=== PATIENT | female | born 1945 | race Caucasian/White ===

== ENCOUNTER 2016-12-13 20:15 | Inpatient (IN) | payer OTHER, MEDICARE ==
[~2016-12-13] VITALS: Ht 165.1 cm; Wt 74.3 kg
[2016-12-13 20:16] VITALS: O2SAT 96
[2016-12-13] MEDS ORDERED: CALCIUM CHLORIDE 10% SOLN 1 GRAM/10 ML SYR ONE (20:37)
[2016-12-13 20:38] LABS: BLOOD GAS VENOUS BASE EXCESS -7.5 mmol/L (-2-2); BLOOD GAS VENOUS HCO3 18 mmol/L (22-26); BLOOD GAS VENOUS O2 CONTENT 3.4 Vol % (9.0-17.0); BLOOD GAS VENOUS O2 HGB SAT 24 % (70-76); BLOOD GAS VENOUS PCO2 40 mmHg (44-48); BLOOD GAS VENOUS PO2 21 mmHg (35-40); BLOOD GAS VENOUS pH 7.28 (7.360-7.400); CRITICAL VALUE YES; DRAW SITE LINE; LITER FLOW 4 L/M; OXYGEN DEVICE NASAL CANNULA; TEMP CORR TO 98.6
[2016-12-13 20:39] LABS: STAT YES
[2016-12-13] MEDS ORDERED: GLUCAGON 1 MG/ML VIAL ONE ×3 (20:39→20:40)
[2016-12-13 20:45] LABS: AUTOMATED NEUTROPHIL # 2.8 TH/MM3 (1.8-7.7); BASOPHIL % 0.4 % (0.0-2.0); EOSINOPHIL # 0.2 TH/MM3 (0-0.4); EOSINOPHIL % 2.6 % (0.0-4.0); LYMPH % 57.4 % (9.0-44.0); LYMPHOCYTE # 4.7 TH/MM3 (1.0-4.8); MEAN CELL VOLUME 85.3 FL (80.0-100.0); MEAN CORPUSCULAR HEMOGLOBIN 29.2 PG (27.0-34.0); MEAN CORPUSCULAR HGB CONC 34.2 % (32.0-36.0); MONO % 4.7 % (0.0-8.0); NEUT % 34.9 % (16.0-70.0); PLATELET COUNT 248 TH/MM3 (150-450); RED BLOOD COUNT 3.87 MIL/MM3 (4.00-5.30); RED CELL DISTRIBUTION WIDTH 12.4 % (11.6-17.2); WHITE BLOOD COUNT 8.1 TH/MM3 (4.0-11.0)
[2016-12-13 20:48] LABS: HEMO FLAGS AUTO DIFF
[2016-12-13] MEDS ORDERED: IOHEXOL 350 MG/ML 10 ML VIAL (for RAD DIAG) IV ONE (20:51)
[2016-12-13 20:53] LABS: I-STAT POTASSIUM 2.4 MMOL/L (3.5-4.9)
[2016-12-13 20:57] LABS: APTT (PATIENT) 22.7 SEC (24.3-30.1); PROTHROMBIN TIME - PATIENT 11.6 SEC (9.8-11.6)
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
[2016-12-13 21:17] LABS: BANDS 1 % (0-6); EOSINOPHILS 2 % (0-4); METAMYELOCYTES 1 % (0-1); MYELOCYTES 0 % (0-0); NEUTROPHIL # MANUAL DIFF 2.5 TH/MM3 (1.8-7.7); POLYS (SEG NEUTROPHILS) 29 % (16-70); WBC DIFF SAMPLE 100
[2016-12-13 21:18] LABS: PLATELET ESTIMATE SMEAR NORMAL (NORMAL); PLATELET MORPHOLOGY NORMAL (NORMAL); SCAN/DIFF FINAL DIFF MANUAL
[2016-12-13 21:30] VITALS: BP 152/72; PULSE 74; RESP 25; TEMP 97.7; O2SAT 97
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
[2016-12-13 22:00] VITALS: PULSE 80
[2016-12-13] MEDS ORDERED: ONDANSETRON HCL 4 MG/2 ML VIAL IV PRN (22:00)
[2016-12-13] MEDS ORDERED: ENALAPRILAT 1.25 MG/ML VIAL IV PRN (22:00)
[2016-12-13] MEDS ORDERED: ACETAMINOPHEN/HYDROcodone 325 MG/5 MG TAB PO PRN (22:00)
[2016-12-13] MEDS ORDERED: MAGNESIUM HYDROXIDE SUSP 30 ML CUP PO PRN (22:00)
[2016-12-13] MEDS ORDERED: MISCELLANEOUS NURSING INFORMATION XX SCH (22:00)
[2016-12-13] MEDS ORDERED: CHLORHEXIDINE GLUCONATE 2 % 1 PACK (2 CLOTHS) TOP PRN (22:00)
[2016-12-13] MEDS: BACITRACIN TOP OINT 15 GM TUBE TOP SCH (22:00)
[2016-12-13] MEDS: MORPHINE SULFATE 4 MG/ML INJ IV PRN (22:24)
[2016-12-13] MEDS: PANTOPRAZOLE SODIUM 40 MG VIAL IVP SCH (22:24)
[2016-12-13] MEDS: SODIUM CHLOR 0.9% 1000 ML INJ 1,000 ML IV SCH (22:25)
[2016-12-13 22:50] VITALS: O2SAT 97
[2016-12-13] MEDS: ACETAMINOPHEN/HYDROcodone 325 MG/5 MG TAB PO PRN (23:07)
[2016-12-14] VITALS (12 sets, daily range): BP systolic 92–135; BP diastolic 55–69; PULSE 74–127; RESP 16–23; TEMP 98.3–100.8; O2SAT 92–99
[2016-12-14] MEDS: MORPHINE SULFATE 4 MG/ML INJ IV PRN (00:21)
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
[2016-12-14] MEDS ORDERED: POTASSIUM PHOSPHATE INJ 30 MMOL in SODIUM CHLOR 0.9% 250 ML INJ 250 ML IV PRN (02:07)
[2016-12-14] MEDS ORDERED: POTASSIUM PHOSPHATE MONOBASIC 500 MG TAB PO/TUBE PRN (02:07)
[2016-12-14] MEDS ORDERED: MAGNESIUM SULFATE INJ 4 GM in SODIUM CHLORIDE 0.9% INJ 92 ML IV PRN (02:15)
[2016-12-14] MEDS ORDERED: POTASSIUM CHLOR 20 MEQ PREMIX 100 ML IV PRN ×2 (02:15)
[2016-12-14] MEDS ORDERED: SODIUM PHOSPHATE INJ 30 MMOL in SODIUM CHLOR 0.9% 250 ML INJ 240 ML IV PRN (02:15)
[2016-12-14] MEDS ORDERED: POTASSIUM CHLOR 40 MEQ PREMIX 100 ML IV PRN ×2 (02:15)
[2016-12-14] MEDS ORDERED: MAGNESIUM SULFATE INJ 2 GM in SODIUM CHLORIDE 0.9% INJ 96 ML IV PRN (02:15)
[2016-12-14] MEDS ORDERED: POTASSIUM PHOSPHATE MONOBASIC 500 MG TAB PO PRN (02:15)
[2016-12-14] MEDS ORDERED: MAGNESIUM OXIDE 400 MG TAB PO PRN (02:15)
[2016-12-14 02:19] LABS: BICARBONATE 24.7 MEQ/L (21.0-32.0); POTASSIUM 3.9 MEQ/L (3.5-5.1)
[2016-12-14] MEDS: MORPHINE SULFATE 8 MG/ML INJ IV PUSH PRN ×2 (03:20→05:53)
[2016-12-14] MEDS: ACETAMINOPHEN/HYDROcodone 325 MG/5 MG TAB PO PRN ×3 (03:20→13:26)
[2016-12-14] MEDS ORDERED: MORPHINE SULFATE 4 MG/ML INJ IV PRN (04:00)
[2016-12-14] MEDS ORDERED: CHLORHEXIDINE GLUCONATE 2 % 1 PACK (2 CLOTHS) TOP SCH (04:00)
[2016-12-14 06:08] LABS: AUTOMATED NEUTROPHIL # 9.8 TH/MM3 (1.8-7.7); BASOPHIL % 0.1 % (0.0-2.0); EOSINOPHIL % 0.1 % (0.0-4.0); HEMATOCRIT 35.2 % (35.0-46.0); HEMO FLAGS DIFF FINAL; LYMPH % 7.6 % (9.0-44.0); LYMPHOCYTE # 0.9 TH/MM3 (1.0-4.8); MEAN CORPUSCULAR HGB CONC 34.2 % (32.0-36.0); MONO % 6.1 % (0.0-8.0); NEUT % 86.1 % (16.0-70.0); PLATELET COUNT 155 TH/MM3 (150-450); RED BLOOD COUNT 4.14 MIL/MM3 (4.00-5.30); RED CELL DISTRIBUTION WIDTH 13.7 % (11.6-17.2); WHITE BLOOD COUNT 11.4 TH/MM3 (4.0-11.0)
[2016-12-14] MEDS: SODIUM CHLOR 0.9% 1000 ML INJ 1,000 ML IV SCH (06:14)
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
[2016-12-14 06:29] LABS: BICARBONATE 24.1 MEQ/L (21.0-32.0); POTASSIUM 4.6 MEQ/L (3.5-5.1)
[2016-12-14] MEDS: RESP: ALBUTEROL 2.5 MG/IPRATROPIUM 0.5 MG NEB (SCH) NEB ×3 (08:24→22:04)
[2016-12-14] MEDS: DOCUSATE SODIUM 100 MG CAP PO SCH ×2 (08:35→20:05)
[2016-12-14] MEDS: BACITRACIN TOP OINT 15 GM TUBE TOP SCH ×2 (08:35→20:11)
--- NOTE | 2016-12-14 09:45 | RADRPT ---
EXAM DATE/TIME: 12/14/2016 09:18 [facility] COMPARISON: CHEST SINGLE AP, December 13, 2016, 20:10. INDICATIONS : Shortness of breath. MEDICAL HISTORY : None. SURGICAL HISTORY : None. ENCOUNTER: Subsequent ACUITY: 2 days PAIN SCORE: 0/10 LOCATION: Bilateral chest FINDINGS: The heart size is normal. The study is taken with poor inspiratory effort and there is increased dens ity at the bases especially on the left. Mid and upper lungs are clear. No effusion is seen.CONCLUSIO N: Expiratory chest x-ray with suspected compressive changes at the bases especially on the left. Antelmo Hill MD on December 14, 2016 at 9:43 Board Certified Radiologist. This report was verified electronically.
[2016-12-14] MEDS: METHOCARBAMOL 500 MG TAB PO SCH ×2 (10:59→18:00)
[2016-12-14] MEDS: LIDOCAINE HCL 5% PATCH TD SCH (10:59)
[2016-12-14] MEDS: MORPHINE SULFATE 4 MG/ML INJ IV PUSH PRN ×2 (11:06→14:48)
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
[2016-12-14] MEDS: REMOVE OLD PATCH T-DERMAL SCH (20:08)
[2016-12-14] MEDS: PANTOPRAZOLE SODIUM 40 MG VIAL IVP SCH (21:51)
[2016-12-14] MEDS ORDERED: SODIUM CHLOR 0.9% 1000 ML INJ 999 ML IV ONE (23:30)
[2016-12-15] VITALS (9 sets, daily range): BP systolic 93–141; BP diastolic 57–91; PULSE 95–139; RESP 18–20; TEMP 96.8–100.8; O2SAT 86–97
[2016-12-15 00:02] LABS: AUTOMATED NEUTROPHIL # 6.9 TH/MM3 (1.8-7.7); BASOPHIL % 0.1 % (0.0-2.0); HEMATOCRIT 35.6 % (35.0-46.0); HEMO FLAGS DIFF FINAL; LYMPH % 9.5 % (9.0-44.0); LYMPHOCYTE # 0.8 TH/MM3 (1.0-4.8); MEAN CELL VOLUME 86.9 FL (80.0-100.0); MEAN CORPUSCULAR HEMOGLOBIN 29.4 PG (27.0-34.0); MEAN CORPUSCULAR HGB CONC 33.8 % (32.0-36.0); MONO % 8.2 % (0.0-8.0); NEUT % 82.2 % (16.0-70.0); PLATELET COUNT 141 TH/MM3 (150-450); RED CELL DISTRIBUTION WIDTH 14.2 % (11.6-17.2); WHITE BLOOD COUNT 8.4 TH/MM3 (4.0-11.0)
[2016-12-15] MEDS: METHOCARBAMOL 500 MG TAB PO SCH ×3 (01:49→17:46)
[2016-12-15] MEDS: RESP: ALBUTEROL 2.5 MG/IPRATROPIUM 0.5 MG NEB (SCH) NEB ×4 (04:00→21:18)
[2016-12-15 04:47] LABS: HEMATOCRIT 34.6 % (35.0-46.0); MEAN CELL VOLUME 86.5 FL (80.0-100.0); MEAN CORPUSCULAR HEMOGLOBIN 29.6 PG (27.0-34.0); MEAN CORPUSCULAR HGB CONC 34.3 % (32.0-36.0); PLATELET COUNT 138 TH/MM3 (150-450); RED CELL DISTRIBUTION WIDTH 14.1 % (11.6-17.2); REVIEW FLAG FINAL; WHITE BLOOD COUNT 8.7 TH/MM3 (4.0-11.0)
[2016-12-15] MEDS ORDERED: LEVO.05 PO (04:47)
[2016-12-15] MEDS ORDERED: METO100T PO (04:47)
[2016-12-15] MEDS ORDERED: LISI40TA PO (04:47)
[2016-12-15 05:29] LABS: BICARBONATE 19.9 MEQ/L (21.0-32.0); POTASSIUM 4.8 MEQ/L (3.5-5.1)
[2016-12-15] MEDS ORDERED: ALPRAZolam 0.5 MG TAB PO PRN (06:30)
--- NOTE | 2016-12-15 06:46 | RADRPT ---
EXAM DATE/TIME: 12/15/2016 06:30 [facility] COMPARISON: CHEST SINGLE AP, December 14, 2016, 9:18. INDICATIONS : Shortness of breath. MEDICAL HISTORY : None. SURGICAL HISTORY : None. ENCOUNTER: Subsequent ACUITY: 3 days PAIN SCORE: Non-responsive. LOCATION: Bilateral chest FINDINGS: Increasing consolidation in the medial left lower lung loss of delineation of the medial one third of the left hemidiaphragm. The right lung is clear. The heart is normal size. CONCLUSION: Increasing consolidation medial left lower lung. Rajinder Moreira MD on December 15, 2016 at 6:44 Board Certified Radiologist. This report was verified electronically.
[2016-12-15] MEDS ORDERED: METOPROLOL TARTRATE 100 MG TAB PO ONE ×2 (06:51→13:00)
[2016-12-15] MEDS ORDERED: SODIUM CHLOR 0.9% 1000 ML INJ 1,000 ML IV ONE (08:56)
[2016-12-15] MEDS: BACITRACIN TOP OINT 15 GM TUBE TOP SCH ×2 (09:00→19:57)
[2016-12-15] MEDS: LEVOTHYROXINE SODIUM 50 MCG TAB PO SCH (09:00)
[2016-12-15] MEDS: DOCUSATE SODIUM 100 MG CAP PO SCH ×2 (11:32→19:59)
[2016-12-15] MEDS: LIDOCAINE HCL 5% PATCH TD SCH (11:33)
[2016-12-15] MEDS: ACETAMINOPHEN/HYDROcodone 325 MG/5 MG TAB PO PRN (11:40)
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
[2016-12-15] MEDS: LACTULOSE SYRUP 20 GM/30 ML CUP PO SCH (15:41)
[2016-12-15 19:27] LABS: BLOOD, URINE SMALL (NEG); GLUCOSE,URINE NEG (NEG); GRANULAR CAST, URINE 2 /lpf; HYALINE CAST, URINE 5 /lpf (RARE); KETONE, URINE TRACE mg/dL (NEG); MUCUS URINE FEW /lpf (OCC); NITRITE,URINE NEG (NEG); SQUAMOUS EPITHELIAL CELL URINE 1 /hpf (0-5)
[2016-12-15 19:29] LABS: COMMENT (UR) CATH-CULTURE IND; CULTURE IF INDICATED CATH CULTURE IND; URINE COLOR ORANGE (YELLW/STRAW)
[2016-12-15] MEDS: PANTOPRAZOLE SODIUM 40 MG VIAL IVP SCH (19:58)
[2016-12-15] MEDS: REMOVE OLD PATCH T-DERMAL SCH (19:59)
--- NOTE | 2016-12-15 21:31 | EKG ---
Date Performed: 12/14/2016 Time Performed: 23:35:06 PTAGE: 71 years EKG: Sinus tachycardia Within normal limits NO PREVIOUS TRACING to compare. Abnormal ECG NO PREVIOUS TRACING DOCTOR: Yony Jones Interpretating Date/Time 04/02/2017 14:28:07
[2016-12-16] VITALS (15 sets, daily range): BP systolic 75–157; BP diastolic 47–78; PULSE 88–230; RESP 18–34; TEMP 96.4–103.1; O2SAT 89–100
[2016-12-16] MEDS: METHOCARBAMOL 500 MG TAB PO SCH ×4 (01:11→16:44)
[2016-12-16] MEDS: RESP: ALBUTEROL 2.5 MG/IPRATROPIUM 0.5 MG NEB (SCH) NEB ×3 (03:55→20:47)
[2016-12-16] MEDS: LEVOTHYROXINE SODIUM 50 MCG TAB PO SCH (05:10)
[2016-12-16 06:15] LABS: HEMATOCRIT 37.4 % (35.0-46.0); MEAN CELL VOLUME 88.8 FL (80.0-100.0); MEAN CORPUSCULAR HEMOGLOBIN 29.9 PG (27.0-34.0); MEAN CORPUSCULAR HGB CONC 33.7 % (32.0-36.0); PLATELET COUNT 159 TH/MM3 (150-450); RED BLOOD COUNT 4.21 MIL/MM3 (4.00-5.30); RED CELL DISTRIBUTION WIDTH 14.7 % (11.6-17.2); REVIEW FLAG FINAL; WHITE BLOOD COUNT 8.7 TH/MM3 (4.0-11.0)
--- NOTE | 2016-12-16 06:46 | RADRPT ---
EXAM DATE/TIME: 12/16/2016 05:24 [facility] COMPARISON: CHEST SINGLE AP, December 15, 2016, 6:30. INDICATIONS : Shortness of breath. MEDICAL HISTORY : None. SURGICAL HISTORY : None. ENCOUNTER: Subsequent ACUITY: 4 - 6 days PAIN SCORE: Non-responsive. LOCATION: Bilateral chest FINDINGS: Single AP view of the chest. Opacity at left lung base indicating atelectasis verses consolidation. L perri volumes are low. Cardiomediastinal silhouette unchanged. Possible small left pleural effusion. CONCLUSION: No change in left lower lobe consolidation versus atelectasis and small left pleural effusion. Fly White MD on December 16, 2016 at 6:43 Board Certified Radiologist. This report was verified electronically.
[2016-12-16] MEDS ORDERED: LORazepam 2 MG/ML VIAL IVS ONE (07:02)
[2016-12-16 07:16] LABS: BICARBONATE 16.2 MEQ/L (21.0-32.0); MAGNESIUM 1.4 MG/DL (1.5-2.5); POTASSIUM 4.6 MEQ/L (3.5-5.1)
[2016-12-16] MEDS: LACTULOSE SYRUP 20 GM/30 ML CUP PO SCH ×2 (09:00→10:39)
[2016-12-16] MEDS ORDERED: METOPROLOL SUCCINATE 25 MG EXTENDED RELEASE TAB PO SCH (09:00)
[2016-12-16] MEDS: BACITRACIN TOP OINT 15 GM TUBE TOP SCH ×2 (09:00→21:00)
[2016-12-16] MEDS: DOCUSATE SODIUM 100 MG CAP PO SCH ×3 (09:00→21:00)
[2016-12-16] MEDS: LIDOCAINE HCL 5% PATCH TD SCH (10:41)
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
[2016-12-16] MEDS ORDERED: NORMOSOL R INJ 2,000 ML IV ONE (12:00)
[2016-12-16] MEDS ORDERED: PHENYLEPH/NS 1000 MCG/10 ML SYR IV ONE (12:00)
[2016-12-16 12:19] LABS: BLOOD GAS BASE EXCESS -9.6 mmol/L (-2-2); BLOOD GAS CARBOXYHEMOGLOBIN 1.7 % (0-4); BLOOD GAS HCO3 14 mmol/L (22-26); BLOOD GAS O2 HGB SATURATION 89 % (90-100); BLOOD GAS OXYGEN CONTENT 16.2 Vol % (12.0-20.0); BLOOD GAS PCO2 25 mmHg (38-42); BLOOD GAS PO2 61 mmHg (61-120); TEMP CORR TO 98.6
[2016-12-16 12:20] LABS: CRITICAL VALUE YES; DRAW SITE LT RADIAL; LITER FLOW 6 L/M; NUMBER OF ARTERIAL PUNCTURES 1; OXYGEN DEVICE MASK; STAT YES; ULNAR PULSE PRESENT
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
[2016-12-16] MEDS ORDERED: MIDAZOLAM HCL 5 MG/ML VIAL (1 ML) ONE (12:56)
[2016-12-16] MEDS ORDERED: ROCURONIUM INJ 50 MG/5 ML VIAL ONE (12:56)
[2016-12-16] MEDS: SODIUM CHLOR 0.9% 1000 ML INJ 1,000 ML IV SCH (13:00)
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
[2016-12-16 14:03] LABS: BACTERIA, URINE RARE /hpf; BLOOD, URINE MOD (NEG); COMMENT (UR) CATH-CULTURE IND; CULTURE IF INDICATED CATH CULTURE IND; GLUCOSE,URINE NEG (NEG); GRANULAR CAST, URINE 4 /lpf; HYALINE CAST, URINE 16 /lpf (RARE); KETONE, URINE NEG (NEG); MUCUS URINE FEW /lpf (OCC); NITRITE,URINE NEG (NEG); PH, URINE 5.5 (5.0-8.5); SQUAMOUS EPITHELIAL CELL URINE 1 /hpf (0-5); URINE COLOR YELLOW (YELLW/STRAW)
[2016-12-16 14:12] LABS: BLOOD GAS VENOUS BASE EXCESS -9.8 mmol/L (-2-2); BLOOD GAS VENOUS HCO3 16 mmol/L (22-26); BLOOD GAS VENOUS O2 CONTENT 10.2 Vol % (9.0-17.0); BLOOD GAS VENOUS O2 HGB SAT 72 % (70-76); BLOOD GAS VENOUS PCO2 39 mmHg (44-48); BLOOD GAS VENOUS PO2 46 mmHg (35-40); BLOOD GAS VENOUS pH 7.24 (7.360-7.400); TEMP CORR TO 98.6
[2016-12-16 14:13] LABS: CRITICAL VALUE YES; OXYGEN DEVICE VENTILATOR
[2016-12-16 14:14] LABS: DRAW SITE SWAN GANZ LINE; FIO2 100 %; STAT NO; VENT SETTINGS PRVC14/450/1.0/PEEP5
[2016-12-16] MEDS ORDERED: MAGNESIUM SULFATE 1 GM PREMIX 100 ML ONE (14:58)
[2016-12-16] MEDS: MAGNESIUM SULFAT 1 GM PREMIX 100 ML x2 bags IV SCH ×2 (15:15→16:15)
[2016-12-16 15:24] LABS: INDIRECT BILIRUBIN 0.6 MG/DL (0.0-0.8); TOTAL BILIRUBIN ADULT 0.9 MG/DL (0.2-1.0)
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
--- NOTE | 2016-12-16 15:45 | PD.PROCEDR ---
Procedure Note Procedure DX: Hypoxemic Respiratory Failure, Sepsis, ESE. OP: 1. Orotracheal intubation (08411) 2. Insertion Central Iine (09483) Procedure: Bag mask ventilation. Versed 10 mg and rocuronium 50 mg iv. Intubated orally with 7.5 tube position confirmed with CO2 detection, breath sounds, sats 100%. Right chest prepped and draped. Right subclavian vein cannulated and wire advanced. Catheter passed over wire to 17 cm. Lumens aspirated and flushed. Dressing applied. CXR ordered, will review. Sánchez Licea MD Dec 16, 2016 15:45
[2016-12-16] MEDS ORDERED: cefTRIAXone INJ 2,000 MG in SODIUM CHLORIDE 0.9% INJ 100 ML IV SCH (16:00)
[2016-12-16] MEDS ORDERED: OMEP20TA PO (16:55)
[2016-12-16] MEDS ORDERED: FENO145T2 PO (16:55)
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
[2016-12-16] MEDS ORDERED: AMIT10TA6 PO (17:02)
[2016-12-16] MEDS ORDERED: CHLO25TA2 PO (17:03)
[2016-12-16] MEDS ORDERED: SODIUM BICARBONATE 8.4% INJ 75 MEQ in SODIUM CHLOR 0.45% 1000 ML INJ 1,000 ML IV SCH (17:30)
[2016-12-16] MEDS ORDERED: PROPOFOL 1000 MG/100 ML INJ 100 ML ONE (19:11)
[2016-12-16] MEDS ORDERED: PROPOFOL 1000 MG/100 ML INJ 100 ML IV SCH (19:15)
[2016-12-16] MEDS ORDERED: METOPROLOL TARTRATE 5 MG/5 ML VIAL ONE (19:19)
[2016-12-16] MEDS: PIPERACIL-TAZO 2.25 GM PREMIX 50 ML IV SCH (20:00)
[2016-12-16] MEDS ORDERED: SODIUM CHLOR 0.9% 1000 ML INJ 1,000 ML IV ONE ×3 (20:00→23:15)
[2016-12-16] MEDS ORDERED: ACETAMINOPHEN 1000 MG/100 ML VIAL IV ONE (20:00)
[2016-12-16] MEDS: BISACODYL 10 MG SUPP RECTAL SCH ×2 (20:00→21:00)
[2016-12-16 20:33] LABS: AUTOMATED NEUTROPHIL # 2.9 TH/MM3 (1.8-7.7); BASOPHIL % 0.2 % (0.0-2.0); EOSINOPHIL % 0.1 % (0.0-4.0); HEMATOCRIT 31.8 % (35.0-46.0); LYMPH % 18.3 % (9.0-44.0); LYMPHOCYTE # 0.7 TH/MM3 (1.0-4.8); MEAN CELL VOLUME 85.7 FL (80.0-100.0); MEAN CORPUSCULAR HEMOGLOBIN 29.4 PG (27.0-34.0); MEAN CORPUSCULAR HGB CONC 34.3 % (32.0-36.0); MONO % 6.2 % (0.0-8.0); NEUT % 75.2 % (16.0-70.0); PLATELET COUNT 183 TH/MM3 (150-450); RED BLOOD COUNT 3.72 MIL/MM3 (4.00-5.30); RED CELL DISTRIBUTION WIDTH 14.2 % (11.6-17.2); WHITE BLOOD COUNT 3.9 TH/MM3 (4.0-11.0)
[2016-12-16 20:38] LABS: HEMO FLAGS AUTO DIFF
[2016-12-16] MEDS: REMOVE OLD PATCH T-DERMAL SCH (21:00)
[2016-12-16] MEDS: METOCLOPRAMIDE HCL 10 MG/2 ML VIAL IV PUSH SCH (21:01)
[2016-12-16] MEDS: PANTOPRAZOLE SODIUM 40 MG VIAL IVP SCH (21:01)
[2016-12-16 21:16] LABS: BANDS 41 % (0-6); METAMYELOCYTES 13 % (0-1); MYELOCYTES 5 % (0-0); NEUTROPHIL # MANUAL DIFF 3.2 TH/MM3 (1.8-7.7); POLYS (SEG NEUTROPHILS) 23 % (16-70); PROMYELOCYTES 1 % (0-0); WBC DIFF SAMPLE 100
[2016-12-16 21:17] LABS: DOHLE BODIES PRESENT (NONE SEEN); PLATELET ESTIMATE SMEAR NORMAL (NORMAL); PLATELET MORPHOLOGY NORMAL (NORMAL); SCAN/DIFF FINAL DIFF MANUAL; TOXIC VACUOLATION PRESENT (NONE SEEN)
[2016-12-16] MEDS ORDERED: NOREPINEPHRINE-DEXTROSE DRIP 250 ML IV ONE (21:19)
[2016-12-16] MEDS ORDERED: VANCOMYCIN INJ 1,600 MG in SODIUM CHLORID 0.9% 500 ML INJ 500 ML IV ONE (22:00)
[2016-12-16 22:16] LABS: LACTIC ACID GHOST NOT REPORTABLE
--- NOTE | 2016-12-16 23:01 | PD.PROCEDR ---
Procedure Note Procedure DATE: 12/16/16 PROCEDURE: Right radial arterial catheter placement INDICATION: Septic shock, in need of hemodynamic monitoring. DETAILS OF PROCEDURE Agustin test was performed and demonstrated satisfactory perfusion. The patient was positioned with wrist in mild extension. The skin was cleansed with Chloraprep. Additional barrier precautions included large sterile drape, sterile gloves, sterile gown, face mask, and hat. Under direct ultrasound guidnce and on the third attempt, the artery was accessed with an introducer needle. The guide wire was advanced. Using Seldinger technique 20 gauge arterial catheter was placed. The guide wire was removed. The catheter was connected to a transducer line and flushed with saline. The video monitor displayed normal arterial wave forms. The catheter was secured with 2-0 silk. A sterile dressing with antibiotic disc was applied. ESTIMATED BLOOD LOSS: minimal COMPLICATIONS: None Miracle Caban MD Dec 16, 2016 23:01
[2016-12-16] MEDS ORDERED: BUPIVACAINE/EPINEPHRINE 0.5% PF 30 ML VIAL ONE (23:05)
[2016-12-16] MEDS ORDERED: HEPARIN SODIUM - SQ 10,000 UNITS/ML VIAL ONE (23:40)
[2016-12-17] VITALS (17 sets, daily range): BP systolic 117–136; BP diastolic 50–61; PULSE 88–138; RESP 16–19; TEMP 97.6–99.3; O2SAT 95–100
[2016-12-17] MEDS ORDERED: fentaNYL CITRATE 250 MCG/5 ML AMP ONE (01:42)
[2016-12-17 01:52] LABS: HEMATOCRIT 25.5 % (35.0-46.0); MEAN CELL VOLUME 87.7 FL (80.0-100.0); MEAN CORPUSCULAR HEMOGLOBIN 29.8 PG (27.0-34.0); PLATELET COUNT 196 TH/MM3 (150-450); RED BLOOD COUNT 2.91 MIL/MM3 (4.00-5.30); RED CELL DISTRIBUTION WIDTH 14.6 % (11.6-17.2)
[2016-12-17 01:54] LABS: HEMO FLAGS AUTO DIFF
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
[2016-12-17 02:18] LABS: BICARBONATE 13.8 MEQ/L (21.0-32.0); MAGNESIUM 1.7 MG/DL (1.5-2.5); POTASSIUM 4.4 MEQ/L (3.5-5.1); TOTAL BILIRUBIN ADULT 0.8 MG/DL (0.2-1.0)
[2016-12-17 02:19] LABS: CALCIUM-PROTEIN CORRECTED 6.7 MG/DL (8.5-10.1)
[2016-12-17] MEDS ORDERED: VASOPRESSIN INJ 20 UNITS/ML VIAL ONE (02:27)
[2016-12-17 02:30] LABS: BLOOD GAS CARBOXYHEMOGLOBIN 0.7 % (0-4); BLOOD GAS HCO3 10 mmol/L (22-26); BLOOD GAS METHEMOGLOBIN 1.1 % (0-2); BLOOD GAS O2 HGB SATURATION 94 % (90-100); BLOOD GAS OXYGEN CONTENT 11.3 Vol % (12.0-20.0); BLOOD GAS PCO2 27 mmHg (38-42); BLOOD GAS PO2 96 mmHg (61-120); BLOOD GAS TOTAL HGB 8.4 G/DL (12.0-16.0); CRITICAL VALUE YES; OXYGEN DEVICE VENTILATOR; TEMP CORR TO 98.6
[2016-12-17] MEDS ORDERED: SODIUM BICARBONATE 8.4% INJ 50 MEQ/50 ML SYR IV PUSH ONE (02:30)
[2016-12-17] MEDS ORDERED: CALCIUM CHLORIDE INJ 1 GM in DEXTROSE 5% IN WATER 100ML INJ 100 ML IV ONE ×2 (02:30)
[2016-12-17 02:32] LABS: DRAW SITE ART LINE; FIO2 80 %; STAT YES; ULNAR PULSE PRESENT
[2016-12-17] MEDS: VASOPRESSIN INJ 40 UNITS in DEXTROSE 5% IN WATER 100ML INJ 98 ML IV SCH ×2 (02:33)
[2016-12-17] MEDS: SODIUM CHLOR 0.9% 1000 ML INJ 1,000 ML IV SCH ×2 (02:33→07:24)
[2016-12-17] MEDS: PIPERACIL-TAZO 2.25 GM PREMIX 50 ML IV SCH ×4 (02:47→20:39)
[2016-12-17] MEDS: RESP: ALBUTEROL 2.5 MG/IPRATROPIUM 0.5 MG NEB (SCH) NEB ×4 (02:52→19:38)
[2016-12-17 03:05] LABS: BANDS 35 % (0-6); CORRECTED NUCLEATED RBC 1 /100 WBC (0-0); METAMYELOCYTES 22 % (0-1); MYELOCYTES 2 % (0-0); PLATELET ESTIMATE SMEAR NORMAL (NORMAL); POLYS (SEG NEUTROPHILS) 24 % (16-70); PROMYELOCYTES 2 % (0-0); SCAN/DIFF FINAL DIFF MANUAL; WBC DIFF SAMPLE 100
[2016-12-17 03:06] LABS: DOHLE BODIES PRESENT (NONE SEEN); PLATELET MORPHOLOGY NORMAL (NORMAL); TOXIC VACUOLATION PRESENT (NONE SEEN)
[2016-12-17 03:07] LABS: BURR CELLS 1+ (NORMAL); POLYCHROMASIA 2.4 % (0.0-1.9)
[2016-12-17] MEDS: SODIUM BICARBONATE 8.4% INJ 150 MEQ in WATER STERILE FOR INJ 850 ML IV SCH ×2 (03:16→23:00)
[2016-12-17] MEDS: FLUCONAZOLE/NACL 200 MG/100 ML IV SCH (03:24)
--- NOTE | 2016-12-17 05:04 | RADRPT ---
EXAM DATE/TIME: 12/17/2016 03:00 [place] COMPARISON: CHEST SINGLE AP, December 16, 2016, 5:24. INDICATIONS : Shortness of breath. MEDICAL HISTORY : None. SURGICAL HISTORY : None. ENCOUNTER: Subsequent ACUITY: 1 week PAIN SCORE: Non-responsive. LOCATION: Bilateral chest FINDINGS: Single AP view of the chest. Endotracheal tube is in place with the tip 3 cm above the ruby. Nasoga stric tube is in place with the tip below the [id number] of the radiograph. Right subclavian centr al venous catheter is in place with the tip at the cavoatrial junction. No evidence of pneumothorax. Bilateral lower lung zone predominant parenchymal opacity and small bilateral pleural effusions. CONCLUSION: Increased bilateral lower lung zone predominant opacity suggesting pulmonary edema. Small bilateral p leural effusions. Lines and tubes in place. Fly White MD on December 17, 2016 at 5:01 Board Certified Radiologist. This report was verified electronically.
[2016-12-17] MEDS: METOCLOPRAMIDE HCL 10 MG/2 ML VIAL IV PUSH SCH ×3 (06:34→20:38)
[2016-12-17] MEDS: LEVOTHYROXINE SODIUM 100 MCG VIAL IV PUSH SCH (06:34)
[2016-12-17] MEDS: CHLORHEXIDINE 0.12% (ORAL KIT) 15 ML CUP MT SCH ×2 (07:53→20:38)
[2016-12-17] MEDS: LIDOCAINE HCL 5% PATCH TD SCH (08:50)
[2016-12-17] MEDS: BISACODYL 10 MG SUPP RECTAL SCH (08:50)
[2016-12-17] MEDS: DOCUSATE SODIUM 100 MG CAP PO SCH (08:51)
[2016-12-17] MEDS: LACTULOSE SYRUP 20 GM/30 ML CUP PO SCH (08:51)
[2016-12-17 09:37] LABS: AUTOMATED NEUTROPHIL # 3.1 TH/MM3 (1.8-7.7); BASOPHIL % 0.2 % (0.0-2.0); EOSINOPHIL % 0.6 % (0.0-4.0); HEMATOCRIT 35.2 % (35.0-46.0); LYMPHOCYTE # 0.7 TH/MM3 (1.0-4.8); MEAN CELL VOLUME 85.4 FL (80.0-100.0); MEAN CORPUSCULAR HEMOGLOBIN 28.9 PG (27.0-34.0); MEAN CORPUSCULAR HGB CONC 33.9 % (32.0-36.0); NEUT % 77.2 % (16.0-70.0); PLATELET COUNT 128 TH/MM3 (150-450); RED BLOOD COUNT 4.12 MIL/MM3 (4.00-5.30); RED CELL DISTRIBUTION WIDTH 14.3 % (11.6-17.2)
[2016-12-17 09:43] LABS: HEMO FLAGS AUTO DIFF
[2016-12-17 09:45] LABS: BICARBONATE 17.3 MEQ/L (21.0-32.0); MAGNESIUM 1.9 MG/DL (1.5-2.5); POTASSIUM 3.8 MEQ/L (3.5-5.1); TOTAL BILIRUBIN ADULT 1.1 MG/DL (0.2-1.0)
[2016-12-17 09:50] LABS: CALCIUM-PROTEIN CORRECTED 7.3 MG/DL (8.5-10.1)
[2016-12-17] MEDS: BACITRACIN TOP OINT 15 GM TUBE TOP SCH ×2 (10:24→20:38)
[2016-12-17 10:40] LABS: BANDS 38 % (0-6); BURR CELLS 2+ (NORMAL); METAMYELOCYTES 2 % (0-1); NEUTROPHIL # MANUAL DIFF 3.6 TH/MM3 (1.8-7.7); POLYS (SEG NEUTROPHILS) 50 % (16-70); WBC DIFF SAMPLE 100
[2016-12-17 10:41] LABS: DOHLE BODIES PRESENT (NONE SEEN); PLATELET ESTIMATE SMEAR LOW (NORMAL); PLATELET MORPHOLOGY NORMAL (NORMAL); SCAN/DIFF FINAL DIFF MANUAL; TOXIC VACUOLATION PRESENT (NONE SEEN)
[2016-12-17] MEDS ORDERED: WATER IV ONE ×2 (11:00)
[2016-12-17] MEDS ORDERED: CALCIUM CHLORIDE IV ONE ×2 (11:00)
[2016-12-17] MEDS ORDERED: DEXTROSE 5% IV ONE ×2 (11:00)
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
[2016-12-17] MEDS ORDERED: VANCOMYCIN INJ 1,000 MG in SODIUM CHLOR 0.9% 250 ML INJ 250 ML IV ONE (13:00)
[2016-12-17] MEDS ORDERED: BUMETANIDE INJ 1 MG/4 ML VIAL IV PUSH ONE (13:15)
[2016-12-17] MEDS ORDERED: BUMETANIDE INJ 100 ML IV SCH (14:45)
--- NOTE | 2016-12-17 15:00 | EKG ---
Date Performed: 12/17/2016 Time Performed: 11:44:27 PTAGE: 71 years EKG: SINUS TACHYCARDIA WITH SHORT DC INTERVAL LOW QRS VOLTAGE IN EXTREMITY LEADS POSSIBLE ANTERI OR MYOCARDIAL INFARCTION , PROBABLY OLD Compared to prior tracing no significant change ABNORMAL RHYT ECG PREVIOUS TRACING : 12/16/2016 21.23 DOCTOR: Jeremias Brizuela Interpretating Date/Time 04/02/2017 14:28:26
--- NOTE | 2016-12-17 15:00 | EKG ---
Date Performed: 12/16/2016 Time Performed: 21:23:30 PTAGE: 71 years EKG: Sinus tachycardia with PAC(s). Short ME interval Poor R wave progression - probable normal variant Low QRS voltages in limb leads Compared to prior tracing no significant change Borderline ECG PREVIOUS TRACING : 12/14/2016 23.35 DOCTOR: Jeremias Brizuela Interpretating Date/Time 04/02/2017 14:28:17
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
[2016-12-17] MEDS ORDERED: ALBUMIN HUMAN 5% 25 GM/500 ML BOTTLE IV ONE (17:15)
[2016-12-17] MEDS ORDERED: ALBUMIN HUMAN 5% 25 GM/500 ML BOTTLE IV PRN (17:30)
[2016-12-17] MEDS: METOPROLOL TARTRATE 5 MG/5 ML VIAL IV PUSH PRN (18:09)
[2016-12-17] MEDS: MIDAZOLAM HCL 2 MG/2 ML VIAL IV PUSH PRN (19:11)
[2016-12-17] MEDS: PANTOPRAZOLE SODIUM 40 MG VIAL IVP SCH (20:37)
[2016-12-18] VITALS (16 sets, daily range): BP systolic 114–153; BP diastolic 48–60; PULSE 100–144; RESP 16–23; TEMP 98.7–99.6; O2SAT 96–100
[2016-12-18] MEDS: VASOPRESSIN INJ 40 UNITS in DEXTROSE 5% IN WATER 100ML INJ 98 ML IV SCH ×2 (00:13)
[2016-12-18] MEDS: SODIUM BICARBONATE 8.4% INJ 150 MEQ in WATER STERILE FOR INJ 850 ML IV SCH (01:30)
[2016-12-18] MEDS: PIPERACIL-TAZO 2.25 GM PREMIX 50 ML IV SCH ×4 (02:36→19:26)
[2016-12-18] MEDS: FLUCONAZOLE/NACL 200 MG/100 ML IV SCH (02:36)
[2016-12-18] MEDS: RESP: ALBUTEROL 2.5 MG/IPRATROPIUM 0.5 MG NEB (SCH) NEB (03:23)
[2016-12-18] MEDS: MIDAZOLAM HCL 2 MG/2 ML VIAL IV PUSH PRN ×4 (04:00→22:51)
[2016-12-18] MEDS ORDERED: LORazepam 2 MG/ML VIAL ONE (04:13)
[2016-12-18] MEDS ORDERED: LORazepam 2 MG/ML VIAL IV PUSH ONE (04:15)
[2016-12-18] MEDS ORDERED: SODIUM CHLORID 0.9% 500 ML INJ 500 ML IV ONE (04:30)
[2016-12-18 04:44] LABS: AUTOMATED NEUTROPHIL # 5.4 TH/MM3 (1.8-7.7); BASOPHIL % 0.1 % (0.0-2.0); EOSINOPHIL % 0.2 % (0.0-4.0); HEMATOCRIT 29.6 % (35.0-46.0); LYMPH % 13.1 % (9.0-44.0); LYMPHOCYTE # 0.9 TH/MM3 (1.0-4.8); MEAN CELL VOLUME 82.7 FL (80.0-100.0); MEAN CORPUSCULAR HEMOGLOBIN 29.4 PG (27.0-34.0); MEAN CORPUSCULAR HGB CONC 35.6 % (32.0-36.0); MONO % 4.4 % (0.0-8.0); NEUT % 82.2 % (16.0-70.0); PLATELET COUNT 146 TH/MM3 (150-450); RED BLOOD COUNT 3.57 MIL/MM3 (4.00-5.30); RED CELL DISTRIBUTION WIDTH 14.9 % (11.6-17.2); WHITE BLOOD COUNT 6.5 TH/MM3 (4.0-11.0)
--- NOTE | 2016-12-18 04:49 | RADRPT ---
EXAM DATE/TIME: 12/18/2016 03:06 [facility] COMPARISON: CHEST SINGLE AP, December 17, 2016, 3:00. INDICATIONS : Shortness of breath. MEDICAL HISTORY : Hypertension. SURGICAL HISTORY : Hysterectomy. ENCOUNTER: Subsequent ACUITY: 4 - 6 days PAIN SCORE: Non-responsive. LOCATION: Bilateral chest FINDINGS: Single AP view of the chest. Endotracheal tube, nasogastric tube, and right subclavian central venous catheter in place. No significant interval change in bilateral pulmonary opacity and likely small le ft pleural effusion. No evidence of pneumothorax. Cardiomediastinal silhouette unchanged. CONCLUSION: No change in bilateral pulmonary opacity. Likely small left pleural effusion. Fly White MD on December 18, 2016 at 4:42 Board Certified Radiologist. This report was verified electronically.
[2016-12-18 04:52] LABS: HEMO FLAGS AUTO DIFF
[2016-12-18 05:10] LABS: BICARBONATE 23.9 MEQ/L (21.0-32.0); CALCIUM-PROTEIN CORRECTED 8.4 MG/DL (8.5-10.1); MAGNESIUM 1.5 MG/DL (1.5-2.5); TOTAL BILIRUBIN ADULT 1.1 MG/DL (0.2-1.0)
[2016-12-18] MEDS: METOCLOPRAMIDE HCL 10 MG/2 ML VIAL IV PUSH SCH ×3 (05:13→22:51)
[2016-12-18] MEDS: LEVOTHYROXINE SODIUM 100 MCG VIAL IV PUSH SCH (05:14)
[2016-12-18 05:17] LABS: POTASSIUM 2.9 MEQ/L (3.5-5.1)
[2016-12-18 05:45] LABS: BLOOD GAS BASE EXCESS -0.1 mmol/L (-2-2); BLOOD GAS CARBOXYHEMOGLOBIN 1.4 % (0-4); BLOOD GAS HCO3 23 mmol/L (22-26); BLOOD GAS METHEMOGLOBIN 0.9 % (0-2); BLOOD GAS O2 HGB SATURATION 92 % (90-100); BLOOD GAS OXYGEN CONTENT 13.6 Vol % (12.0-20.0); BLOOD GAS PCO2 34 mmHg (38-42); BLOOD GAS PO2 69 mmHg (61-120); BLOOD GAS TOTAL HGB 10.4 G/DL (12.0-16.0); CRITICAL VALUE NO; OXYGEN DEVICE VENTILATOR; TEMP CORR TO 98.6
[2016-12-18 05:46] LABS: DRAW SITE LT RADIAL; FIO2 45 %; NUMBER OF ARTERIAL PUNCTURES 1; STAT NO; ULNAR PULSE PRESENT; VENT SETTINGS PRVC/AC
[2016-12-18] MEDS: METOPROLOL TARTRATE 5 MG/5 ML VIAL IV PUSH PRN ×3 (06:44→20:35)
[2016-12-18 07:06] LABS: BANDS 23 % (0-6); EOSINOPHILS 1 % (0-4); NEUTROPHIL # MANUAL DIFF 5.7 TH/MM3 (1.8-7.7); POLYS (SEG NEUTROPHILS) 65 % (16-70); WBC DIFF SAMPLE 100
[2016-12-18 07:07] LABS: PLATELET ESTIMATE SMEAR NORMAL (NORMAL); PLATELET MORPHOLOGY NORMAL (NORMAL); SCAN/DIFF FINAL DIFF MANUAL
[2016-12-18] MEDS ORDERED: MAGNESIUM SULFATE INJ 2 GM in SODIUM CHLORIDE 0.9% INJ 96 ML IV PRN (08:45)
[2016-12-18] MEDS ORDERED: POTASSIUM PHOSPHATE MONOBASIC 500 MG TAB PO/TUBE PRN (08:45)
[2016-12-18] MEDS ORDERED: MAGNESIUM SULFATE INJ 4 GM in SODIUM CHLORIDE 0.9% INJ 92 ML IV PRN (08:45)
[2016-12-18] MEDS ORDERED: MAGNESIUM OXIDE 400 MG TAB PO PRN (08:45)
[2016-12-18] MEDS ORDERED: POTASSIUM CHLOR 20 MEQ PREMIX 100 ML IV PRN ×2 (08:45)
[2016-12-18] MEDS ORDERED: SODIUM PHOSPHATE INJ 30 MMOL in SODIUM CHLOR 0.9% 250 ML INJ 240 ML IV PRN (08:45)
[2016-12-18] MEDS ORDERED: POTASSIUM CHLOR 40 MEQ PREMIX 100 ML IV PRN (08:45)
[2016-12-18] MEDS ORDERED: POTASSIUM PHOSPHATE MONOBASIC 500 MG TAB PO PRN (08:45)
[2016-12-18] MEDS: BACITRACIN TOP OINT 15 GM TUBE TOP SCH ×2 (09:00→19:26)
[2016-12-18] MEDS: CHLORHEXIDINE 0.12% (ORAL KIT) 15 ML CUP MT SCH ×2 (09:04→19:26)
[2016-12-18] MEDS: POTASSIUM CHLOR 40 MEQ PREMIX 100 ML IV PRN ×4 (09:13→20:28)
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
[2016-12-18] MEDS ORDERED: FUROSEMIDE 20 MG/2 ML VIAL IV PUSH ONE (11:00)
[2016-12-18] MEDS: fentaNYL 2,500 MCG/NS 250 ML IV SCH (11:13)
[2016-12-18] MEDS: HEPARIN SODIUM - SQ 10,000 UNITS/ML VIAL SQ SCH ×2 (11:59→19:26)
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
[2016-12-18] MEDS ORDERED: Custom Consult Pharmacy 1 EA OTHER SCH (17:30)
[2016-12-18] MEDS: PANTOPRAZOLE SODIUM 40 MG VIAL IVP SCH (22:51)
[2016-12-18] MEDS: MIDAZOLAM 100 MG/ML INJ 100 ML IV SCH (23:54)
[2016-12-19] VITALS (18 sets, daily range): BP systolic 123–178; BP diastolic 54–65; PULSE 88–130; RESP 15–18; TEMP 98.8–100.4; O2SAT 94–99
[2016-12-19] MEDS: METOPROLOL TARTRATE 5 MG/5 ML VIAL IV PUSH PRN ×3 (00:12→21:41)
[2016-12-19] MEDS: fentaNYL 2,500 MCG/NS 250 ML IV SCH ×2 (00:56→19:03)
[2016-12-19] MEDS: PIPERACIL-TAZO 2.25 GM PREMIX 50 ML IV SCH ×3 (01:16→13:17)
[2016-12-19] MEDS: FLUCONAZOLE/NACL 200 MG/100 ML IV SCH (04:02)
[2016-12-19 04:54] LABS: AUTOMATED NEUTROPHIL # 9.6 TH/MM3 (1.8-7.7); BASOPHIL % 0.2 % (0.0-2.0); EOSINOPHIL # 0.1 TH/MM3 (0-0.4); EOSINOPHIL % 0.7 % (0.0-4.0); HEMATOCRIT 28.6 % (35.0-46.0); LYMPH % 6.2 % (9.0-44.0); LYMPHOCYTE # 0.6 TH/MM3 (1.0-4.8); MEAN CELL VOLUME 83.8 FL (80.0-100.0); MEAN CORPUSCULAR HEMOGLOBIN 30.1 PG (27.0-34.0); MEAN CORPUSCULAR HGB CONC 35.9 % (32.0-36.0); MONO % 0.5 % (0.0-8.0); NEUT % 92.4 % (16.0-70.0); PLATELET COUNT 157 TH/MM3 (150-450); RED BLOOD COUNT 3.42 MIL/MM3 (4.00-5.30); RED CELL DISTRIBUTION WIDTH 14.8 % (11.6-17.2); WHITE BLOOD COUNT 10.4 TH/MM3 (4.0-11.0)
[2016-12-19 05:01] LABS: HEMO FLAGS AUTO DIFF
[2016-12-19 05:22] LABS: CALCIUM-PROTEIN CORRECTED 8.5 MG/DL (8.5-10.1); MAGNESIUM 1.7 MG/DL (1.5-2.5); POTASSIUM 3.5 MEQ/L (3.5-5.1); TOTAL BILIRUBIN ADULT 1.5 MG/DL (0.2-1.0)
[2016-12-19 05:31] LABS: BLOOD GAS BASE EXCESS 3.3 mmol/L (-2-2); BLOOD GAS CARBOXYHEMOGLOBIN 1.5 % (0-4); BLOOD GAS HCO3 27 mmol/L (22-26); BLOOD GAS METHEMOGLOBIN 1.1 % (0-2); BLOOD GAS O2 HGB SATURATION 92 % (90-100); BLOOD GAS OXYGEN CONTENT 14.1 Vol % (12.0-20.0); BLOOD GAS PCO2 35 mmHg (38-42); BLOOD GAS PO2 69 mmHg (61-120); BLOOD GAS TOTAL HGB 10.8 G/DL (12.0-16.0); CRITICAL VALUE NO; OXYGEN DEVICE VENTILATOR; TEMP CORR TO 98.6
[2016-12-19 05:32] LABS: DRAW SITE RT BRACHIAL; FIO2 40 %; NUMBER OF ARTERIAL PUNCTURES 1; STAT NO; ULNAR PULSE PRESENT; VENT SETTINGS PRVC/AC
--- NOTE | 2016-12-19 05:50 | RADRPT ---
EXAM DATE/TIME: 12/19/2016 04:24 [facility] COMPARISON: CHEST SINGLE AP, December 18, 2016, 3:06. INDICATIONS : Shortness of breath, possible pulmonary disease. MEDICAL HISTORY : Hypertension. SURGICAL HISTORY : Hysterectomy. ENCOUNTER: Subsequent ACUITY: 1 week PAIN SCORE: Non-responsive. LOCATION: Bilateral chest FINDINGS: Single AP view of the chest. Endotracheal tube, nasogastric tube, and right subclavian central venous catheter remain in place. Persistent left lower lobe consolidation versus atelectasis and small left pleural effusion. Increased right lung base opacity indicating consolidation versus atelectasis and small pleural effusion. Central pulmonary vasculature indistinctness indicates mild pulmonary edema. CONCLUSION: Bilateral pulmonary opacity with increase in the right lung base. Small bilateral pleural effusions. lFy White MD on December 19, 2016 at 5:48 Board Certified Radiologist. This report was verified electronically.
[2016-12-19] MEDS: METOCLOPRAMIDE HCL 10 MG/2 ML VIAL IV PUSH SCH ×3 (06:07→21:07)
[2016-12-19] MEDS: LEVOTHYROXINE SODIUM 100 MCG VIAL IV PUSH SCH (06:07)
[2016-12-19 07:12] LABS: BANDS 22 % (0-6); CORRECTED NUCLEATED RBC 2 /100 WBC (0-0); EOSINOPHILS 1 % (0-4); NEUTROPHIL # MANUAL DIFF 9.3 TH/MM3 (1.8-7.7); PLATELET ESTIMATE SMEAR NORMAL (NORMAL); PLATELET MORPHOLOGY NORMAL (NORMAL); POLYS (SEG NEUTROPHILS) 67 % (16-70); SCAN/DIFF FINAL DIFF MANUAL; WBC DIFF SAMPLE 100
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
[2016-12-19] MEDS: CHLORHEXIDINE 0.12% (ORAL KIT) 15 ML CUP MT SCH ×2 (08:23→19:18)
[2016-12-19] MEDS: HEPARIN SODIUM - SQ 10,000 UNITS/ML VIAL SQ SCH ×2 (08:25→19:18)
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
[2016-12-19] MEDS ORDERED: CHLOROTHIAZIDE SOD 500 MG VIAL IV ONE (09:00)
[2016-12-19] MEDS: POTASSIUM PHOSPHATE INJ 30 MMOL in SODIUM CHLOR 0.9% 250 ML INJ 250 ML IV PRN (09:11)
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
[2016-12-19] MEDS: BACITRACIN TOP OINT 15 GM TUBE TOP SCH ×2 (09:33→19:18)
[2016-12-19] MEDS ORDERED: LABETALOL HCL 100 MG/20 ML VIAL ONE (10:39)
[2016-12-19] MEDS: ACETAMINOPHEN 325 MG TAB PO PRN (10:52)
[2016-12-19] MEDS: LABETALOL HCL 100 MG/20 ML VIAL IV PRN ×3 (11:40→19:18)
[2016-12-19] MEDS ORDERED: LABETALOL HCL 100 MG/20 ML VIAL IV PUSH PRN (12:15)
[2016-12-19] MEDS: FREE WATER G-TUBE SCH ×2 (12:57→18:07)
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
[2016-12-19] MEDS: PIPERACIL-TAZO 3.375 GM PREMIX 50 ML IV SCH (20:19)
[2016-12-19] MEDS: PANTOPRAZOLE SODIUM 40 MG VIAL IVP SCH (21:07)
[2016-12-20] VITALS (19 sets, daily range): BP systolic 108–151; BP diastolic 52–69; PULSE 86–119; RESP 14–16; TEMP 98.6–101.3; O2SAT 93–100
[2016-12-20] MEDS: ACETAMINOPHEN 325 MG TAB PO PRN ×2 (00:07→11:41)
[2016-12-20] MEDS: FREE WATER G-TUBE SCH ×4 (00:08→17:29)
[2016-12-20] MEDS: PIPERACIL-TAZO 3.375 GM PREMIX 50 ML IV SCH (03:07)
[2016-12-20] MEDS: FLUCONAZOLE/NACL 200 MG/100 ML IV SCH (03:07)
[2016-12-20 04:57] LABS: BASOPHIL % 0.1 % (0.0-2.0); EOSINOPHIL # 0.1 TH/MM3 (0-0.4); EOSINOPHIL % 0.6 % (0.0-4.0); HEMATOCRIT 27.3 % (35.0-46.0); LYMPH % 5.9 % (9.0-44.0); LYMPHOCYTE # 0.7 TH/MM3 (1.0-4.8); MEAN CELL VOLUME 84.7 FL (80.0-100.0); MEAN CORPUSCULAR HEMOGLOBIN 28.2 PG (27.0-34.0); MEAN CORPUSCULAR HGB CONC 33.2 % (32.0-36.0); MONO % 4.2 % (0.0-8.0); NEUT % 89.2 % (16.0-70.0); PLATELET COUNT 182 TH/MM3 (150-450); RED BLOOD COUNT 3.23 MIL/MM3 (4.00-5.30); RED CELL DISTRIBUTION WIDTH 14.8 % (11.6-17.2); WHITE BLOOD COUNT 12.3 TH/MM3 (4.0-11.0)
[2016-12-20 04:58] LABS: HEMO FLAGS AUTO DIFF
[2016-12-20 05:23] LABS: BICARBONATE 31.9 MEQ/L (21.0-32.0); CALCIUM-PROTEIN CORRECTED 8.2 MG/DL (8.5-10.1); MAGNESIUM 1.9 MG/DL (1.5-2.5); POTASSIUM 3.1 MEQ/L (3.5-5.1); TOTAL BILIRUBIN ADULT 1.5 MG/DL (0.2-1.0)
[2016-12-20] MEDS: MIDAZOLAM 100 MG/ML INJ 100 ML IV SCH (05:38)
--- NOTE | 2016-12-20 06:13 | RADRPT ---
EXAM DATE/TIME: 12/20/2016 03:14 [place] COMPARISON: CHEST SINGLE AP, December 19, 2016, 4:24. INDICATIONS : Shortness of breath. MEDICAL HISTORY : Hypertension. SURGICAL HISTORY : None. ENCOUNTER: Subsequent ACUITY: 1 week PAIN SCORE: Non-responsive. LOCATION: Bilateral chest FINDINGS: A single view of the chest demonstrates endotracheal tube in satisfactory position. NG enters stomach . Right central line in superior vena cava. Bilateral mostly basilar airspace disease and pleural eff usions similar to prior study. No pneumothorax. CONCLUSION: 1. Support apparatus in satisfactory position. Basilar airspace disease and pleural effusions similar to December 19. José Miguel Kelly MD on December 20, 2016 at 6:10 Board Certified Radiologist. This report was verified electronically.
[2016-12-20] MEDS: METOCLOPRAMIDE HCL 10 MG/2 ML VIAL IV PUSH SCH ×3 (06:40→21:29)
[2016-12-20] MEDS: LEVOTHYROXINE SODIUM 100 MCG VIAL IV PUSH SCH (06:40)
[2016-12-20 07:05] LABS: BANDS 14 % (0-6); MYELOCYTES 1 % (0-0); PLATELET ESTIMATE SMEAR NORMAL (NORMAL); PLATELET MORPHOLOGY NORMAL (NORMAL); POLYS (SEG NEUTROPHILS) 66 % (16-70); SCAN/DIFF FINAL DIFF MANUAL; WBC DIFF SAMPLE 100
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
[2016-12-20] MEDS: POTASSIUM PHOSPHATE INJ 30 MMOL in SODIUM CHLOR 0.9% 250 ML INJ 250 ML IV PRN ×2 (08:08→23:00)
[2016-12-20] MEDS: HEPARIN SODIUM - SQ 10,000 UNITS/ML VIAL SQ SCH ×2 (08:08→16:21)
[2016-12-20] MEDS: cefTRIAXone INJ 2,000 MG in SODIUM CHLORIDE 0.9% INJ 100 ML IV SCH (08:08)
[2016-12-20] MEDS: LISINOPRIL 5 MG TAB PO SCH (08:09)
[2016-12-20] MEDS: METOPROLOL TARTRATE 25 MG TAB PO SCH ×2 (08:09→21:17)
[2016-12-20] MEDS: metroNIDAZOLE 500 MG INJ 100 ML IV SCH ×3 (08:09→20:11)
[2016-12-20] MEDS: CHLORHEXIDINE 0.12% (ORAL KIT) 15 ML CUP MT SCH ×2 (08:40→21:18)
[2016-12-20] MEDS: LABETALOL HCL 100 MG/20 ML VIAL IV PRN ×2 (10:48→14:45)
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
[2016-12-20] MEDS ORDERED: CHLOROTHIAZIDE SOD 500 MG VIAL IV ONE (14:00)
[2016-12-20] MEDS: BACITRACIN TOP OINT 15 GM TUBE TOP SCH ×2 (15:37→21:00)
[2016-12-20] MEDS: fentaNYL 2,500 MCG/NS 250 ML IV SCH (16:20)
[2016-12-20] MEDS: DEXMEDETOMIDINE INJ 50 ML IV SCH ×3 (16:50→20:23)
[2016-12-20 20:02] LABS: POTASSIUM 3.2 MEQ/L (3.5-5.1)
[2016-12-20] MEDS: SODIUM CHLORIDE 0.9% FLUSH 5 ML FLUSH IVF PRN ×2 (20:09→21:29)
[2016-12-20 20:27] LABS: BLOOD, URINE SMALL (NEG); GLUCOSE,URINE NEG (NEG); GRANULAR CAST, URINE 4 /lpf; KETONE, URINE NEG (NEG); MUCUS URINE FEW /lpf (OCC); NITRITE,URINE NEG (NEG); PH, URINE 6.5 (5.0-8.5); URINE COLOR YELLOW (YELLW/STRAW)
[2016-12-20 20:30] LABS: COMMENT (UR) CATH-CULT NOT IND; CULTURE IF INDICATED CATH CULTURE NOT IND
[2016-12-20] MEDS: PANTOPRAZOLE SODIUM 40 MG VIAL IVP SCH (21:29)
[2016-12-21] VITALS (19 sets, daily range): BP systolic 120–147; BP diastolic 63–84; PULSE 68–124; RESP 13–28; TEMP 98.1–99.6; O2SAT 94–99
[2016-12-21] MEDS: metroNIDAZOLE 500 MG INJ 100 ML IV SCH ×4 (01:16→20:02)
[2016-12-21] MEDS: HEPARIN SODIUM - SQ 10,000 UNITS/ML VIAL SQ SCH ×3 (01:17→16:17)
[2016-12-21] MEDS: DEXMEDETOMIDINE INJ 50 ML IV SCH ×4 (01:17→11:16)
[2016-12-21] MEDS: FLUCONAZOLE/NACL 200 MG/100 ML IV SCH (03:08)
[2016-12-21] MEDS: LEVOTHYROXINE SODIUM 100 MCG VIAL IV PUSH SCH (05:21)
[2016-12-21] MEDS: METOCLOPRAMIDE HCL 10 MG/2 ML VIAL IV PUSH SCH ×3 (05:21→21:58)
[2016-12-21] MEDS: FREE WATER G-TUBE SCH ×3 (06:00→08:39)
[2016-12-21 06:34] LABS: AUTOMATED NEUTROPHIL # 13.9 TH/MM3 (1.8-7.7); BASOPHIL % 0.1 % (0.0-2.0); EOSINOPHIL # 0.2 TH/MM3 (0-0.4); EOSINOPHIL % 1.1 % (0.0-4.0); LYMPH % 4.8 % (9.0-44.0); LYMPHOCYTE # 0.7 TH/MM3 (1.0-4.8); MEAN CELL VOLUME 86.2 FL (80.0-100.0); MEAN CORPUSCULAR HEMOGLOBIN 28.8 PG (27.0-34.0); MEAN CORPUSCULAR HGB CONC 33.4 % (32.0-36.0); MONO % 3.9 % (0.0-8.0); NEUT % 90.1 % (16.0-70.0); PLATELET COUNT 235 TH/MM3 (150-450); RED BLOOD COUNT 3.36 MIL/MM3 (4.00-5.30); RED CELL DISTRIBUTION WIDTH 14.9 % (11.6-17.2); WHITE BLOOD COUNT 15.4 TH/MM3 (4.0-11.0)
[2016-12-21 06:42] LABS: HEMO FLAGS AUTO DIFF
--- NOTE | 2016-12-21 07:07 | RADRPT ---
EXAM DATE/TIME: 12/21/2016 03:24 [facility] COMPARISON: CHEST SINGLE AP, December 20, 2016, 3:14. INDICATIONS : Shortness of breath. MEDICAL HISTORY : Hypertension. SURGICAL HISTORY : None. ENCOUNTER: Subsequent ACUITY: 1 week PAIN SCORE: Non-responsive. LOCATION: Bilateral chest FINDINGS: Endotracheal tube tip in satisfactory position. NG enters stomach. Right central line in superior radha a cava. Basilar airspace disease and small effusions similar to December 20. CONCLUSION: 1. Stable exam since December 20 with basilar airspace disease and small effusions. Support apparatus un changed. José Miguel Kelly MD on December 21, 2016 at 7:04 Board Certified Radiologist. This report was verified electronically.
[2016-12-21 07:11] LABS: BICARBONATE 29.9 MEQ/L (21.0-32.0); CALCIUM-PROTEIN CORRECTED 8.3 MG/DL (8.5-10.1); POTASSIUM 3.2 MEQ/L (3.5-5.1); TOTAL BILIRUBIN ADULT 0.7 MG/DL (0.2-1.0)
[2016-12-21 07:47] LABS: BANDS 23 % (0-6); CORRECTED NUCLEATED RBC 1 /100 WBC (0-0); EOSINOPHILS 1 % (0-4); METAMYELOCYTES 2 % (0-1); MYELOCYTES 1 % (0-0); NEUTROPHIL # MANUAL DIFF 14.3 TH/MM3 (1.8-7.7); POLYS (SEG NEUTROPHILS) 67 % (16-70); WBC DIFF SAMPLE 100
[2016-12-21 07:48] LABS: PLATELET ESTIMATE SMEAR NORMAL (NORMAL); TOXIC VACUOLATION PRESENT (NONE SEEN)
[2016-12-21 07:50] LABS: PLATELET MORPHOLOGY ENLARGED (NORMAL); SCAN/DIFF FINAL DIFF MANUAL
[2016-12-21] MEDS: LISINOPRIL 5 MG TAB PO SCH (08:38)
[2016-12-21] MEDS: cefTRIAXone INJ 2,000 MG in SODIUM CHLORIDE 0.9% INJ 100 ML IV SCH (08:38)
[2016-12-21] MEDS: BACITRACIN TOP OINT 15 GM TUBE TOP SCH ×2 (08:39→20:03)
[2016-12-21] MEDS: METOPROLOL TARTRATE 25 MG TAB PO SCH ×2 (08:39→17:59)
[2016-12-21] MEDS: CHLORHEXIDINE 0.12% (ORAL KIT) 15 ML CUP MT SCH ×2 (08:39→20:00)
[2016-12-21] MEDS: POTASSIUM PHOSPHATE INJ 30 MMOL in SODIUM CHLOR 0.9% 250 ML INJ 250 ML IV PRN (08:42)
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
[2016-12-21] MEDS: HALOPERIDOL LACTATE 5 MG/ML AMP IV SCH ×2 (12:32→18:15)
[2016-12-21] MEDS ORDERED: METOPROLOL TARTRATE 5 MG/5 ML VIAL IV PUSH SCH (13:30)
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
[2016-12-21] MEDS ORDERED: METOPROLOL TARTRATE 25 MG TAB PO ONE (16:15)
[2016-12-21] MEDS: ACETAMINOPHEN 325 MG TAB PO PRN (16:16)
[2016-12-21] MEDS: MORPHINE SULFATE 4 MG/ML INJ IV PUSH PRN (20:02)
[2016-12-21] MEDS: PANTOPRAZOLE SODIUM 40 MG VIAL IVP SCH (21:58)
[2016-12-22] VITALS (10 sets, daily range): BP systolic 148–171; BP diastolic 77–91; PULSE 79–124; RESP 19–30; TEMP 97.8–99.1; O2SAT 95–99
[2016-12-22] MEDS: HALOPERIDOL LACTATE 5 MG/ML AMP IV SCH ×4 (00:15→16:54)
[2016-12-22] MEDS: DEXMEDETOMIDINE INJ 50 ML IV SCH ×2 (00:18→00:19)
[2016-12-22] MEDS: HEPARIN SODIUM - SQ 10,000 UNITS/ML VIAL SQ SCH ×3 (00:20→17:35)
[2016-12-22] MEDS: MORPHINE SULFATE 4 MG/ML INJ IV PUSH PRN ×2 (01:33→13:40)
[2016-12-22] MEDS: METOPROLOL TARTRATE 5 MG/5 ML VIAL IV PUSH PRN ×2 (01:33→11:08)
[2016-12-22] MEDS: metroNIDAZOLE 500 MG INJ 100 ML IV SCH ×4 (01:34→20:58)
[2016-12-22] MEDS: ACETAMINOPHEN/HYDROcodone 325 MG/5 MG TAB PO PRN ×3 (01:34→22:14)
[2016-12-22] MEDS: FLUCONAZOLE/NACL 200 MG/100 ML IV SCH (03:16)
[2016-12-22 05:31] LABS: AUTOMATED NEUTROPHIL # 13.9 TH/MM3 (1.8-7.7); BASOPHIL % 0.1 % (0.0-2.0); EOSINOPHIL # 0.2 TH/MM3 (0-0.4); EOSINOPHIL % 1.1 % (0.0-4.0); HEMATOCRIT 29.5 % (35.0-46.0); LYMPH % 6.5 % (9.0-44.0); MEAN CELL VOLUME 85.9 FL (80.0-100.0); MEAN CORPUSCULAR HEMOGLOBIN 28.7 PG (27.0-34.0); MEAN CORPUSCULAR HGB CONC 33.5 % (32.0-36.0); MONO % 5.7 % (0.0-8.0); NEUT % 86.6 % (16.0-70.0); PLATELET COUNT 285 TH/MM3 (150-450); RED BLOOD COUNT 3.43 MIL/MM3 (4.00-5.30); RED CELL DISTRIBUTION WIDTH 14.6 % (11.6-17.2)
[2016-12-22 05:37] LABS: HEMO FLAGS AUTO DIFF
--- NOTE | 2016-12-22 06:07 | RADRPT ---
EXAM DATE/TIME: 12/22/2016 03:56 [place] COMPARISON: CHEST SINGLE AP, December 21, 2016, 3:24. INDICATIONS : Shortness of breath. MEDICAL HISTORY : Hypertension. SURGICAL HISTORY : None. ENCOUNTER: Subsequent ACUITY: 1 week PAIN SCORE: Non-responsive. LOCATION: Bilateral chest FINDINGS: Right central line in superior vena cava. NG enters stomach. Bilateral posterior basilar airspace dis ease and pleural effusions remain similar to December 21. No pneumothorax. CONCLUSION: 1. Interval extubation. Stable bilateral airspace disease and effusions compared with December 21. José Miguel Kelly MD on December 22, 2016 at 6:05 Board Certified Radiologist. This report was verified electronically.
[2016-12-22 06:09] LABS: ANION GAP 10 MEQ/L (5-15); AST (GOT) 69 U/L (15-37); BICARBONATE 28.5 MEQ/L (21.0-32.0); BLOOD UREA NITROGEN 18 MG/DL (7-18); CHLORIDE 115 MEQ/L (98-107); GLOMERULAR FILTRATION RATE 88 ML/MIN (>89); MAGNESIUM 2.1 MG/DL (1.5-2.5); POTASSIUM 3.2 MEQ/L (3.5-5.1); SODIUM (NA) 153 MEQ/L (136-145)
[2016-12-22 06:12] LABS: ALKALINE PHOSPHATASE 51 U/L (45-117); ALT (GPT) 39 U/L (10-53); TOTAL BILIRUBIN ADULT 0.6 MG/DL (0.2-1.0)
[2016-12-22] MEDS: METOCLOPRAMIDE HCL 10 MG/2 ML VIAL IV PUSH SCH ×3 (06:29→20:59)
[2016-12-22] MEDS: LEVOTHYROXINE SODIUM 100 MCG VIAL IV PUSH SCH (06:29)
[2016-12-22] MEDS: METOPROLOL TARTRATE 25 MG TAB PO SCH (06:30)
[2016-12-22] MEDS: POTASSIUM CHLOR 40 MEQ PREMIX 100 ML IV PRN (06:44)
[2016-12-22 07:25] LABS: BANDS 12 % (0-6); MYELOCYTES 2 % (0-0); NEUTROPHIL # MANUAL DIFF 14.4 TH/MM3 (1.8-7.7); POLYS (SEG NEUTROPHILS) 76 % (16-70); WBC DIFF SAMPLE 100
[2016-12-22 07:26] LABS: PLATELET ESTIMATE SMEAR NORMAL (NORMAL); PLATELET MORPHOLOGY NORMAL (NORMAL); SCAN/DIFF FINAL DIFF MANUAL; TOXIC GRANULATION 1+ (NORMAL)
--- NOTE | 2016-12-22 08:19 | EKG ---
Date Performed: 12/21/2016 Time Performed: 15:23:00 PTAGE: 71 years EKG: Baseline artifact is present. Sinus tachycardia. Poor R wave progression - probable normal variant Low QRS voltages in precordial leads Borderline ECG No significant change from prior electroc ardiogram. PREVIOUS TRACING : 12/17/2016 11.44 DOCTOR: Troy Shay Interpretating Date/Time 04/02/2017 14:28:35
[2016-12-22] MEDS: BACITRACIN TOP OINT 15 GM TUBE TOP SCH ×2 (09:00→21:00)
[2016-12-22] MEDS: cefTRIAXone INJ 2,000 MG in SODIUM CHLORIDE 0.9% INJ 100 ML IV SCH (09:39)
[2016-12-22] MEDS: LISINOPRIL 5 MG TAB PO SCH (09:39)
[2016-12-22] MEDS: CHLORHEXIDINE 0.12% (ORAL KIT) 15 ML CUP MT SCH (09:41)
[2016-12-22] MEDS ORDERED: HALOPERIDOL 2 MG TAB PO PRN (09:45)
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
[2016-12-22] MEDS: HYDROCHLOROTHIAZIDE 25 MG TAB PO SCH (11:09)
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
[2016-12-22] MEDS ORDERED: RESP: ALBUTEROL 2.5 MG/IPRATROPIUM 0.5 MG NEB (PRN) NEB (13:30)
[2016-12-22] MEDS ORDERED: SODIUM CHLORIDE 23.4% INJ 51.3 MEQ in WATER STERILE FOR INJ 1,000 ML IV SCH (13:30)
[2016-12-22] MEDS ORDERED: METOPROLOL TARTRATE 100 MG TAB PO ONE (13:30)
[2016-12-22] MEDS ORDERED: FUROSEMIDE 40 MG/4 ML VIAL ONE (13:56)
[2016-12-22] MEDS ORDERED: FUROSEMIDE 40 MG/4 ML VIAL IV PUSH ONE (14:00)
[2016-12-22] MEDS ORDERED: LISINOPRIL 5 MG TAB PO ONE (15:00)
[2016-12-22] MEDS: cloNIDine HCL 0.1 MG TAB PO SCH ×2 (15:33→20:59)
[2016-12-22] MEDS ORDERED: METOPROLOL TARTRATE 100 MG TAB PO SCH (18:00)
[2016-12-22] MEDS ORDERED: LABETALOL HCL 100 MG/20 ML VIAL ONE (18:23)
[2016-12-22] MEDS: LABETALOL HCL 100 MG/20 ML VIAL IV PUSH PRN (18:30)
[2016-12-22] MEDS: PANTOPRAZOLE SODIUM 40 MG VIAL IVP SCH (20:58)
[2016-12-22] MEDS: CEFEPIME INJ 2,000 MG in SODIUM CHLORIDE 0.9% INJ 100 ML IV SCH (20:58)
[2016-12-22] MEDS: METOPROLOL TARTRATE 100 MG TAB PO SCH (20:59)
[2016-12-23] VITALS (13 sets, daily range): BP systolic 146–179; BP diastolic 73–97; PULSE 85–126; RESP 16–26; TEMP 97.9–98.7; O2SAT 96–100
[2016-12-23] MEDS: HALOPERIDOL LACTATE 5 MG/ML AMP IV SCH ×3 (00:15→09:52)
[2016-12-23] MEDS: metroNIDAZOLE 500 MG INJ 100 ML IV SCH ×2 (01:37→09:50)
[2016-12-23] MEDS: FLUCONAZOLE/NACL 200 MG/100 ML IV SCH (01:37)
[2016-12-23] MEDS: HEPARIN SODIUM - SQ 10,000 UNITS/ML VIAL SQ SCH ×3 (01:39→17:12)
[2016-12-23] MEDS: LABETALOL HCL 100 MG/20 ML VIAL IV PUSH PRN (03:33)
[2016-12-23] MEDS: ACETAMINOPHEN/HYDROcodone 325 MG/5 MG TAB PO PRN (03:59)
--- NOTE | 2016-12-23 05:10 | RADRPT ---
EXAM DATE/TIME: 12/23/2016 03:46 [place] COMPARISON: CHEST SINGLE AP, December 22, 2016, 3:56. INDICATIONS : Shortness of breath. MEDICAL HISTORY : Hypertension. SURGICAL HISTORY : None. ENCOUNTER: Subsequent ACUITY: 1 week PAIN SCORE: Non-responsive. LOCATION: Bilateral chest FINDINGS: Shallow lung volumes. Right subclavian central venous catheter. Cardiomegaly. Patchy airspace disease . CONCLUSION: No significant change has occurred. Henrique Perez MD on December 23, 2016 at 5:08 Board Certified Radiologist. This report was verified electronically.
[2016-12-23] MEDS: METOCLOPRAMIDE HCL 10 MG/2 ML VIAL IV PUSH SCH ×3 (06:00→22:12)
[2016-12-23 06:11] LABS: AUTOMATED NEUTROPHIL # 15.2 TH/MM3 (1.8-7.7); BASOPHIL # 0.1 TH/MM3 (0-0.2); BASOPHIL % 0.5 % (0.0-2.0); EOSINOPHIL # 0.1 TH/MM3 (0-0.4); EOSINOPHIL % 0.8 % (0.0-4.0); HEMATOCRIT 31.9 % (35.0-46.0); LYMPH % 6.7 % (9.0-44.0); LYMPHOCYTE # 1.2 TH/MM3 (1.0-4.8); MEAN CELL VOLUME 84.5 FL (80.0-100.0); MEAN CORPUSCULAR HEMOGLOBIN 28.5 PG (27.0-34.0); MEAN CORPUSCULAR HGB CONC 33.7 % (32.0-36.0); MONO % 5.2 % (0.0-8.0); NEUT % 86.8 % (16.0-70.0); PLATELET COUNT 310 TH/MM3 (150-450); RED BLOOD COUNT 3.77 MIL/MM3 (4.00-5.30); RED CELL DISTRIBUTION WIDTH 14.3 % (11.6-17.2); WHITE BLOOD COUNT 17.5 TH/MM3 (4.0-11.0)
[2016-12-23 06:35] LABS: HEMO FLAGS AUTO DIFF
[2016-12-23 06:38] LABS: ALKALINE PHOSPHATASE 56 U/L (45-117); ALT (GPT) 37 U/L (10-53); ANION GAP 11 MEQ/L (5-15); AST (GOT) 54 U/L (15-37); BICARBONATE 29.3 MEQ/L (21.0-32.0); BLOOD UREA NITROGEN 14 MG/DL (7-18); CHLORIDE 106 MEQ/L (98-107); GLOMERULAR FILTRATION RATE 99 ML/MIN (>89); MAGNESIUM 1.8 MG/DL (1.5-2.5); SODIUM (NA) 146 MEQ/L (136-145); TOTAL BILIRUBIN ADULT 0.6 MG/DL (0.2-1.0)
[2016-12-23 06:43] LABS: POTASSIUM 2.7 MEQ/L (3.5-5.1)
[2016-12-23 07:32] LABS: BANDS 3 % (0-6); EOSINOPHILS 1 % (0-4); MYELOCYTES 1 % (0-0); NEUTROPHIL # MANUAL DIFF 16.5 TH/MM3 (1.8-7.7); POLYS (SEG NEUTROPHILS) 90 % (16-70); WBC DIFF SAMPLE 100
[2016-12-23 07:33] LABS: PLATELET ESTIMATE SMEAR NORMAL (NORMAL); PLATELET MORPHOLOGY NORMAL (NORMAL); SCAN/DIFF FINAL DIFF MANUAL
[2016-12-23] MEDS: cloNIDine HCL 0.1 MG TAB PO SCH ×3 (07:53→22:12)
[2016-12-23] MEDS: LEVOTHYROXINE SODIUM 100 MCG VIAL IV PUSH SCH (07:53)
[2016-12-23] MEDS: CHLORHEXIDINE 0.12% (ORAL KIT) 15 ML CUP MT SCH ×2 (08:00→20:00)
[2016-12-23] MEDS ORDERED: LISINOPRIL 5 MG TAB PO SCH (09:00)
[2016-12-23] MEDS: BACITRACIN TOP OINT 15 GM TUBE TOP SCH ×2 (09:00→21:00)
[2016-12-23] MEDS ORDERED: FUROSEMIDE 40 MG/4 ML VIAL IV PUSH ONE (09:45)
[2016-12-23] MEDS ORDERED: POTASSIUM CHLORIDE 20 MEQ CONTROLLED RELEASE TAB PO ONE (09:45)
[2016-12-23] MEDS: CEFEPIME INJ 2,000 MG in SODIUM CHLORIDE 0.9% INJ 100 ML IV SCH (09:49)
[2016-12-23] MEDS: HYDROCHLOROTHIAZIDE 25 MG TAB PO SCH (09:50)
[2016-12-23] MEDS: METOPROLOL TARTRATE 100 MG TAB PO SCH ×2 (09:50→21:49)
[2016-12-23] MEDS: POTASSIUM CHLOR 40 MEQ PREMIX 100 ML IV PRN ×2 (10:03→21:06)
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
[2016-12-23] MEDS: cefTRIAXone INJ 2,000 MG in SODIUM CHLORIDE 0.9% INJ 100 ML IV SCH (13:05)
[2016-12-23] MEDS: metroNIDAZOLE 500 MG TAB PO SCH ×2 (13:06→22:12)
[2016-12-23] MEDS: LEVOFLOXACIN 750 MG TAB PO SCH (13:16)
[2016-12-23] MEDS: FLUCONAZOLE 200 MG TAB PO SCH (13:32)
[2016-12-23] MEDS ORDERED: MAGNESIUM SULFATE 2 GM/NS 100 ML IV ONE ×2 (16:15)
[2016-12-23 20:55] LABS: POTASSIUM 2.9 MEQ/L (3.5-5.1)
[2016-12-23] MEDS: PANTOPRAZOLE SODIUM 40 MG VIAL IVP SCH (22:11)
[2016-12-24] VITALS (13 sets, daily range): BP systolic 152–229; BP diastolic 80–98; PULSE 83–122; RESP 18–25; TEMP 96–99; O2SAT 93–100
[2016-12-24] MEDS: LABETALOL HCL 100 MG/20 ML VIAL IV PUSH PRN ×2 (00:15→06:40)
[2016-12-24] MEDS: HEPARIN SODIUM - SQ 10,000 UNITS/ML VIAL SQ SCH ×3 (01:20→18:12)
[2016-12-24 05:06] LABS: AUTOMATED NEUTROPHIL # 15.7 TH/MM3 (1.8-7.7); BASOPHIL % 0.2 % (0.0-2.0); EOSINOPHIL # 0.1 TH/MM3 (0-0.4); EOSINOPHIL % 0.7 % (0.0-4.0); HEMATOCRIT 32.3 % (35.0-46.0); HEMO FLAGS DIFF FINAL; LYMPH % 6.7 % (9.0-44.0); LYMPHOCYTE # 1.2 TH/MM3 (1.0-4.8); MEAN CELL VOLUME 84.2 FL (80.0-100.0); MEAN CORPUSCULAR HEMOGLOBIN 28.1 PG (27.0-34.0); MEAN CORPUSCULAR HGB CONC 33.4 % (32.0-36.0); MONO % 5.7 % (0.0-8.0); NEUT % 86.7 % (16.0-70.0); PLATELET COUNT 324 TH/MM3 (150-450); RED BLOOD COUNT 3.84 MIL/MM3 (4.00-5.30); RED CELL DISTRIBUTION WIDTH 14.2 % (11.6-17.2); WHITE BLOOD COUNT 18.1 TH/MM3 (4.0-11.0)
[2016-12-24 05:19] LABS: ALT (GPT) 28 U/L (10-53); ANION GAP 7 MEQ/L (5-15); AST (GOT) 38 U/L (15-37); BICARBONATE 28.6 MEQ/L (21.0-32.0); BLOOD UREA NITROGEN 13 MG/DL (7-18); CHLORIDE 106 MEQ/L (98-107); GLOMERULAR FILTRATION RATE 107 ML/MIN (>89); POTASSIUM 3.5 MEQ/L (3.5-5.1); SODIUM (NA) 142 MEQ/L (136-145)
[2016-12-24 05:22] LABS: ALKALINE PHOSPHATASE 50 U/L (45-117); TOTAL BILIRUBIN ADULT 0.5 MG/DL (0.2-1.0)
[2016-12-24] MEDS: METOCLOPRAMIDE HCL 10 MG/2 ML VIAL IV PUSH SCH ×2 (06:47→13:51)
[2016-12-24] MEDS: LEVOTHYROXINE SODIUM 100 MCG VIAL IV PUSH SCH (06:48)
[2016-12-24] MEDS: cloNIDine HCL 0.1 MG TAB PO SCH ×2 (06:48→14:40)
[2016-12-24] MEDS: metroNIDAZOLE 500 MG TAB PO SCH ×2 (06:48→14:40)
[2016-12-24] MEDS: CHLORHEXIDINE 0.12% (ORAL KIT) 15 ML CUP MT SCH ×2 (07:54→20:00)
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
[2016-12-24] MEDS: HYDROCHLOROTHIAZIDE 25 MG TAB PO SCH (09:35)
[2016-12-24] MEDS: LEVOFLOXACIN 750 MG TAB PO SCH (09:35)
[2016-12-24] MEDS: FLUCONAZOLE 200 MG TAB PO SCH (09:36)
[2016-12-24] MEDS: METOPROLOL TARTRATE 100 MG TAB PO SCH (09:36)
[2016-12-24] MEDS: amLODIPine BESYLATE 5 MG TAB PO SCH (09:36)
[2016-12-24] MEDS: BACITRACIN TOP OINT 15 GM TUBE TOP SCH ×2 (09:38→21:00)
[2016-12-24] MEDS: LISINOPRIL 10 MG TAB PO SCH (09:50)
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
[2016-12-24] MEDS: cefTRIAXone INJ 2,000 MG in SODIUM CHLORIDE 0.9% INJ 100 ML IV SCH (14:41)
[2016-12-25] VITALS (9 sets, daily range): BP systolic 157–180; BP diastolic 74–90; PULSE 88–96; RESP 16–20; TEMP 96.1–98.3; O2SAT 93–98
[2016-12-25] MEDS: cloNIDine HCL 0.1 MG TAB PO SCH ×4 (00:01→21:44)
[2016-12-25] MEDS: PANTOPRAZOLE SODIUM 40 MG VIAL IVP SCH (00:01)
[2016-12-25] MEDS: HEPARIN SODIUM - SQ 10,000 UNITS/ML VIAL SQ SCH ×3 (00:01→17:57)
[2016-12-25] MEDS: METOCLOPRAMIDE HCL 10 MG/2 ML VIAL IV PUSH SCH ×4 (00:02→21:44)
[2016-12-25] MEDS: LISINOPRIL 10 MG TAB PO SCH ×3 (00:02→21:44)
[2016-12-25] MEDS: metroNIDAZOLE 500 MG TAB PO SCH ×4 (00:02→21:44)
[2016-12-25] MEDS: METOPROLOL TARTRATE 100 MG TAB PO SCH ×3 (00:02→21:44)
[2016-12-25 04:32] LABS: AUTOMATED NEUTROPHIL # 13.3 TH/MM3 (1.8-7.7); BASOPHIL % 0.2 % (0.0-2.0); EOSINOPHIL # 0.1 TH/MM3 (0-0.4); EOSINOPHIL % 0.5 % (0.0-4.0); HEMATOCRIT 34.2 % (35.0-46.0); HEMO FLAGS DIFF FINAL; LYMPH % 6.5 % (9.0-44.0); MEAN CELL VOLUME 85.5 FL (80.0-100.0); MEAN CORPUSCULAR HEMOGLOBIN 29.1 PG (27.0-34.0); MEAN CORPUSCULAR HGB CONC 34.1 % (32.0-36.0); MONO % 6.5 % (0.0-8.0); NEUT % 86.3 % (16.0-70.0); PLATELET COUNT 338 TH/MM3 (150-450); RED BLOOD COUNT 3.99 MIL/MM3 (4.00-5.30); RED CELL DISTRIBUTION WIDTH 14.3 % (11.6-17.2); WHITE BLOOD COUNT 15.4 TH/MM3 (4.0-11.0)
[2016-12-25 05:04] LABS: ANION GAP 11 MEQ/L (5-15); AST (GOT) 37 U/L (15-37); BICARBONATE 24.5 MEQ/L (21.0-32.0); BLOOD UREA NITROGEN 13 MG/DL (7-18); CHLORIDE 105 MEQ/L (98-107); GLOMERULAR FILTRATION RATE 95 ML/MIN (>89); MAGNESIUM 1.9 MG/DL (1.5-2.5); POTASSIUM 3.3 MEQ/L (3.5-5.1); SODIUM (NA) 140 MEQ/L (136-145)
[2016-12-25 05:07] LABS: ALKALINE PHOSPHATASE 50 U/L (45-117); ALT (GPT) 28 U/L (10-53); TOTAL BILIRUBIN ADULT 0.5 MG/DL (0.2-1.0)
[2016-12-25] MEDS: LEVOTHYROXINE SODIUM 100 MCG VIAL IV PUSH SCH (05:57)
[2016-12-25] MEDS: CHLORHEXIDINE 0.12% (ORAL KIT) 15 ML CUP MT SCH ×2 (06:39→20:00)
[2016-12-25] MEDS ORDERED: POTASSIUM CHLORIDE 20 MEQ CONTROLLED RELEASE TAB PO ONE (08:15)
[2016-12-25] MEDS: BACITRACIN TOP OINT 15 GM TUBE TOP SCH ×2 (09:00→21:00)
[2016-12-25] MEDS: HYDROCHLOROTHIAZIDE 25 MG TAB PO SCH (09:08)
[2016-12-25] MEDS: FLUCONAZOLE 200 MG TAB PO SCH (09:08)
[2016-12-25] MEDS: LEVOFLOXACIN 750 MG TAB PO SCH (09:08)
[2016-12-25] MEDS: amLODIPine BESYLATE 5 MG TAB PO SCH (09:09)
[2016-12-25] MEDS: FAMOTIDINE 20 MG TAB PO SCH ×2 (09:11→21:44)
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
[2016-12-25] MEDS: cefTRIAXone INJ 2,000 MG in SODIUM CHLORIDE 0.9% INJ 100 ML IV SCH (12:19)
[2016-12-25] MEDS: DOCUSATE SODIUM 50 MG/SENNA 8.6 MG TAB PO SCH (21:00)
[2016-12-25] MEDS: SODIUM CHLORIDE 0.9% FLUSH 5 ML FLUSH IVF PRN (21:44)
[2016-12-26] VITALS (7 sets, daily range): BP systolic 156–182; BP diastolic 72–86; PULSE 80–100; RESP 17–20; TEMP 96.8–98.5; O2SAT 94–96
[2016-12-26] MEDS: HEPARIN SODIUM - SQ 10,000 UNITS/ML VIAL SQ SCH ×3 (02:13→16:56)
[2016-12-26 05:36] LABS: AUTOMATED NEUTROPHIL # 11.3 TH/MM3 (1.8-7.7); BASOPHIL % 0.2 % (0.0-2.0); EOSINOPHIL # 0.1 TH/MM3 (0-0.4); EOSINOPHIL % 0.4 % (0.0-4.0); HEMATOCRIT 33.4 % (35.0-46.0); HEMO FLAGS DIFF FINAL; LYMPH % 8.5 % (9.0-44.0); LYMPHOCYTE # 1.2 TH/MM3 (1.0-4.8); MEAN CELL VOLUME 85.9 FL (80.0-100.0); MEAN CORPUSCULAR HEMOGLOBIN 28.2 PG (27.0-34.0); MEAN CORPUSCULAR HGB CONC 32.8 % (32.0-36.0); MONO % 7.4 % (0.0-8.0); NEUT % 83.5 % (16.0-70.0); PLATELET COUNT 333 TH/MM3 (150-450); RED BLOOD COUNT 3.88 MIL/MM3 (4.00-5.30); RED CELL DISTRIBUTION WIDTH 14.1 % (11.6-17.2); WHITE BLOOD COUNT 13.6 TH/MM3 (4.0-11.0)
[2016-12-26 05:59] LABS: ALT (GPT) 28 U/L (10-53); ANION GAP 13 MEQ/L (5-15); AST (GOT) 45 U/L (15-37); BICARBONATE 21.8 MEQ/L (21.0-32.0); BLOOD UREA NITROGEN 13 MG/DL (7-18); CHLORIDE 105 MEQ/L (98-107); GLOMERULAR FILTRATION RATE 99 ML/MIN (>89); MAGNESIUM 1.7 MG/DL (1.5-2.5); SODIUM (NA) 140 MEQ/L (136-145)
[2016-12-26 06:01] LABS: ALKALINE PHOSPHATASE 50 U/L (45-117); TOTAL BILIRUBIN ADULT 0.5 MG/DL (0.2-1.0)
[2016-12-26] MEDS: LEVOTHYROXINE SODIUM 100 MCG VIAL IV PUSH SCH (06:22)
[2016-12-26] MEDS: cloNIDine HCL 0.1 MG TAB PO SCH ×3 (06:23→21:50)
[2016-12-26] MEDS: metroNIDAZOLE 500 MG TAB PO SCH ×3 (06:23→21:50)
[2016-12-26] MEDS: METOCLOPRAMIDE HCL 10 MG/2 ML VIAL IV PUSH SCH (06:23)
--- NOTE | 2016-12-26 07:40 | RADRPT ---
EXAM DATE/TIME: 12/26/2016 06:15 [place] COMPARISON: CHEST SINGLE AP, December 23, 2016, 3:46. INDICATIONS : Short of breath MEDICAL HISTORY : hemorrhagic shock SURGICAL HISTORY : None. ENCOUNTER: Subsequent ACUITY: 1 week PAIN SCORE: 0/10 LOCATION: Bilateral chest FINDINGS: There has been interval removal of a central line. Aeration continues to improve with mild basilar pa renchymal opacities, left worse than right. Visualized cardiac contours are grossly stable. CONCLUSION: Improving aeration Antelmo Ordoñez MD on December 26, 2016 at 7:38 Board Certified Radiologist. This report was verified electronically.
[2016-12-26] MEDS ORDERED: POTASSIUM CHLORIDE 25 MEQ EFFERVESCENT TAB PO ONE (08:00)
[2016-12-26] MEDS: amLODIPine BESYLATE 5 MG TAB PO SCH (08:36)
[2016-12-26] MEDS: LEVOFLOXACIN 750 MG TAB PO SCH (08:36)
[2016-12-26] MEDS: LISINOPRIL 10 MG TAB PO SCH (08:36)
[2016-12-26] MEDS: DOCUSATE SODIUM 50 MG/SENNA 8.6 MG TAB PO SCH (08:36)
[2016-12-26] MEDS: METOPROLOL TARTRATE 100 MG TAB PO SCH ×2 (08:36→21:50)
[2016-12-26] MEDS: HYDROCHLOROTHIAZIDE 25 MG TAB PO SCH (08:37)
[2016-12-26] MEDS: BACITRACIN TOP OINT 15 GM TUBE TOP SCH ×2 (08:37→21:00)
[2016-12-26] MEDS: FAMOTIDINE 20 MG TAB PO SCH ×2 (08:37→21:50)
[2016-12-26] MEDS: cefTRIAXone INJ 2,000 MG in SODIUM CHLORIDE 0.9% INJ 100 ML IV SCH (12:43)
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
[2016-12-26] MEDS ORDERED: WALKER WHEELS/F1 MIS (17:24)
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
[2016-12-26] MEDS ORDERED: FENOFIBRATE 145 MG TAB PO SCH (21:00)
[2016-12-26] MEDS ORDERED: AMITRIPTYLINE HCL 10 MG TAB PO SCH (21:00)
[2016-12-26] MEDS: LISINOPRIL 20 MG TAB PO SCH (21:50)
[2016-12-27] VITALS: BP 166/79; PULSE 89; RESP 20; TEMP 97.9; O2SAT 97
[2016-12-27] MEDS: HEPARIN SODIUM - SQ 10,000 UNITS/ML VIAL SQ SCH ×2 (02:05→08:38)
[2016-12-27] MEDS: LEVOTHYROXINE SODIUM 100 MCG VIAL IV PUSH SCH (04:50)
[2016-12-27] MEDS: metroNIDAZOLE 500 MG TAB PO SCH ×2 (04:50→13:16)
[2016-12-27] MEDS: cloNIDine HCL 0.1 MG TAB PO SCH ×2 (04:50→13:16)
[2016-12-27] MEDS ORDERED: AMLO5 PO (07:32)
[2016-12-27] MEDS ORDERED: CLON.1 PO (07:32)
[2016-12-27] MEDS ORDERED: LEVA750T PO (07:49)
[2016-12-27] MEDS ORDERED: METR-1 PO (07:49)
[2016-12-27] MEDS ORDERED: AUGM500T7 PO (07:49)
[2016-12-27 08:00] VITALS: BP 173/79; PULSE 87; RESP 18; TEMP 98.1; O2SAT 96
[2016-12-27] MEDS: HYDROCHLOROTHIAZIDE 25 MG TAB PO SCH (08:37)
[2016-12-27] MEDS: LEVOFLOXACIN 750 MG TAB PO SCH (08:37)
[2016-12-27] MEDS: METOPROLOL TARTRATE 100 MG TAB PO SCH (08:37)
[2016-12-27] MEDS: amLODIPine BESYLATE 5 MG TAB PO SCH (08:37)
[2016-12-27] MEDS: LISINOPRIL 20 MG TAB PO SCH (08:37)
[2016-12-27] MEDS: FAMOTIDINE 20 MG TAB PO SCH (08:37)
[2016-12-27] MEDS: BACITRACIN TOP OINT 15 GM TUBE TOP SCH (08:40)
[2016-12-27] MEDS ORDERED: HYDR-3516 PO (11:45)
[2016-12-27 12:00] VITALS: BP 157/76; PULSE 89; RESP 20; TEMP 97.3; O2SAT 98
[2016-12-27] MEDS: cefTRIAXone INJ 2,000 MG in SODIUM CHLORIDE 0.9% INJ 100 ML IV SCH (13:00)
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
== END 2016-12-27 15:42 | disposition home health service (06) | DRG 907 ==
LOC: NEPI 20:15 → MERGE 21:51 → NEDA 21:51 → EDBD 21:51 → N03B 21:55 → N06B 12-14 12:08 → N03A 12-16 12:45 → N07A 12-24 20:12
PROVIDERS: ADMIT Surgery; ATTEND Surgery
PROC: 30233N1 Transfusion of Nonautologous Red Blood Cells into Peripheral Vein, Percutaneous Approach (ICD-10-PCS; 2016-12-13)
PROC: 0DBB0ZZ Excision of Ileum, Open Approach (ICD-10-PCS; 2016-12-16)
PROC: 03HY32Z Insertion of Monitoring Device into Upper Artery, Percutaneous Approach (ICD-10-PCS; 2016-12-16)
PROC: 0BH17EZ Insertion of Endotracheal Airway into Trachea, Via Natural or Artificial Opening (ICD-10-PCS; 2016-12-16)
PROC: 0DBF0ZZ Excision of Right Large Intestine, Open Approach (ICD-10-PCS; principal; 2016-12-16 23:30)
PROC: 5A1955Z Respiratory Ventilation, Greater than 96 Consecutive Hours (ICD-10-PCS; 2016-12-16 23:30)
DX: S36.893A Laceration of other intra-abdominal organs, initial encounter (principal); T79.4XXA Traumatic shock, initial encounter; N17.0 Acute kidney failure with tubular necrosis; J96.91 Respiratory failure, unspecified with hypoxia; J15.6 Pneumonia due to other Gram-negative bacteria; G92 Toxic encephalopathy; A41.9 Sepsis, unspecified organism; J90 Pleural effusion, not elsewhere classified; S32.019A Unspecified fracture of first lumbar vertebra, initial encounter for closed fracture; K65.8 Other peritonitis; K46.1 Unspecified abdominal hernia with gangrene; K85.90 Acute pancreatitis without necrosis or infection, unspecified; D62 Acute posthemorrhagic anemia; S32.029A Unspecified fracture of second lumbar vertebra, initial encounter for closed fracture; S06.0X9A Concussion with loss of consciousness of unspecified duration, initial encounter; S22.32XA Fracture of one rib, left side, initial encounter for closed fracture; E87.2 Acidosis; E87.0 Hyperosmolality and hypernatremia; S36.030A Superficial (capsular) laceration of spleen, initial encounter; K76.0 Fatty (change of) liver, not elsewhere classified; R56.9 Unspecified convulsions; R40.2411 Glasgow coma scale score 13-15, in the field [EMT or ambulance]; I10 Essential (primary) hypertension; E03.9 Hypothyroidism, unspecified; K21.9 Gastro-esophageal reflux disease without esophagitis; E87.6 Hypokalemia; R73.9 Hyperglycemia, unspecified; E78.5 Hyperlipidemia, unspecified; E83.51 Hypocalcemia; E87.70 Fluid overload, unspecified; B95.4 Other streptococcus as the cause of diseases classified elsewhere; R00.0 Tachycardia, unspecified; B95.5 Unspecified streptococcus as the cause of diseases classified elsewhere; E83.39 Other disorders of phosphorus metabolism; Z87.891 Personal history of nicotine dependence; Z79.82 Long term (current) use of aspirin; V23.5XXA Motorcycle passenger injured in collision with car, pick-up truck or van in traffic accident, initial encounter
CPT/HCPCS: 31500; 36430; 36556; 36600; 70450; 71010; 71250; 71260; 72125; 72170; 74176; 74177; 76937; 80048; 80053; 80076; 80202; 81001; 82435; 82565; 82805; 82947; 83605; 83690; 83735; 84100; 84132; 84295; 84443; 84484; 84520; 85007; 85025; 85027; 85610; 85730; 86850; 86900; 86901; 86920; 87015; 87040; 87070; 87077; 87086; 87102; 87116; 87185; 87186; 87205; 87206; 87641; 88307; 93005; 94002; 94003; 94150; 94640; 94664; 94667; 94668; 96374; 96375; 99291; C9113; C9399; G0390; J0131; J0692; J0696; J1205; J1450; J1610; J1630; J1644; J1940; J2060; J2250; J2270; J2370; J2405; J2543; J2765; J3010; J3370; J3475; J3480; J7030; J7040; J7050; J7060; P9016; P9045; Q9967